=== PATIENT | female | born 1990 | race Caucasian/White ===

== ENCOUNTER 2021-12-25 09:16 | Outpatient (RCR) | payer MEDICAID, SELFPAY ==
--- NOTE | 2021-12-25 09:05 | BH.SGPN.GN ---
Behaviors/Verbalizations/Mental Status: []Pt alert and oriented, casually dressed and groomed. Eye contact fair to good (writing in notebook throughout session), motor activity appropriate, speech within normal limits. Affect, constricted. Mood, depressed and anxious. Thoughts linear, logical, no signs of hallucinations or delusions. Reviewed pt's daily symptom tracker, no SI indicated. Client Response/Progress/Benefit: []Pt first day in IOP tx, she was receptive of session and remained attentive throughout. Reports current emotion as ?scared? and described a lot of anxiety surrounding seeking intensive mental health treatment. Pt shared she quit her job to focus on her mental health which has also felt overwhelming and like a lot of pressure to ensure she takes the necessary steps to address her mental health needs. Expressed wanting to learn skills to better cope with daily life stressors. Appeared to benefit from group support and encouragement. Will continue with IOP tx to improve healthy coping knowledge, improve mental health symptom management, and prevent decompensation. Narrative Note: []
--- NOTE | 2021-12-25 09:40 | BH.COMM_ITS ---
Communication Note - Communication with Client Communication Note: Met with pt to completed initial paperwork. No changes since pre-admission screening. Completed [place] Suicide Screening. Low risk. Denies SI, plan, or intent in the past 4 weeks. Case discussed with Dr. Diaz with plan to admit to [facility] level of care with dx of F33.2
--- NOTE | 2021-12-25 10:10 | BH.SGPN.GN ---
Behaviors/Verbalizations/Mental Status: [] Eye contact is fair. Motor activity is appropriate. Appearance is casual. Speech is Appropriate. Mood is depressed. Affect is flat. Thoughts are linear and logical. No evidence of psychosis. Client Response/Progress/Benefit: [] Pt was an passive participant in group discussions. Appeared to listen attentively to peers. Attentive during psycho-education on 4 types of conflict styles (Competing, Collaborating, Avoiding, and Accommodating). Worked with group to define conflict and identify how conflict is helpful. With peers identified barriers to addressing or managing conflict which included: fear of upsetting others, embarrassing self, abandonment, past negative experiences with conflict, and shutting down. Pt reported she tries to be collaborative but at times will revert to accommodating style. Pt reported when accommodating she doesn't get her needs met. Benefited from group due to increase insight and awareness of conflict, conflict styles, and obstacles to managing conflict. Pt to continue IOP to increase consistent use of healthy coping skills, increase positive thinking, and prevent decompensation.
--- NOTE | 2021-12-25 11:10 | BH.SGPN.GN ---
Behaviors/Verbalizations/Mental Status: []Client alert and oriented, neatly dressed and groomed. Eye contact stares. Motor activity appropriate. Speech within normal limits. Affect flat, mood depressed and anxious. Thoughts linear, logical, no signs of hallucinations or delusions. Client Response/Progress/Benefit: []Client engaged in session AEB contributing to discussion and engaging in activity. Client did well to review current conflict style and its impact on mental health. Attentive and taking notes during discussion on strategies for more effectively managing conflict in personal life. Client participated in activity and did well to be assertive and collaborating. Client wants to work on asking herself what is making her upset before address any conflict to help client focus on what her needs and goals are. Appeared to benefit from gaining strategies to help client better manage conflict. First day of IOP tx. Will continue IOP tx to prevent decompensation, gain healthy coping skills, and improve overall functioning. Narrative Note: []
--- NOTE | 2021-12-28 11:14 | BH.PSA_ITS ---
Source of Information - Presenting Problems/Circumstances Problems, Referral Source, Mental Status, Client: Client is a 31 year old female with a history of Major Depressive Disorder and Generalized Anxiety Disorder. Client was referred by her individual outpatient therapist to [facility] due to increased depression symptoms over the past year. Client endorses hopelessness, worthlessness, anhedonia, lack of interest, oversleeping, trouble concentrating, rumination, self-isolation, and low motivation. Client reports that her mental health symptoms have impacted her ability to accomplish tasks at home and take care of her activities of daily living. Client was alert and oriented during assessment. Cooperative and receptive. Depressed mood and flat affect. Psychiatric Presentation - Psych Issues & Need for Admission Psychiatric Issues:: F33.2 Major Depressive Disorder, recurrent, severe without psychosis; Generalized Anxiety Disorder Past Psychiatric History - Treatment Hx Treatment History: Previous diagnosis of Major Depressive Disorder, recurrent, severe without psychosis and Generalized anxiety disorder. Client reports having counseling ?for years?, and currently sees an individual outpatient therapist and a new psychiatrist who recently prescribed Pristiq and Strattera. Client states that she has had 7-8 medication changes over the past year. She has a history of one psychiatric admission. Client endorses passive thoughts of , but denies previous suicide attempts or self-harm. First hospitalization:: March 2021 in [place] for suicidal ideation and depression Most recent hospitalization:: March 2021 in [place] for suicidal ideation and depression Medication Trials:: Yes - Strattera, Pristiq ECT Therapy:: No Age of first mental health symptoms: Client reports a long history of depression, with first symptoms of depression and anxiety starting when the client was in high school. Describe (age, circumstance, etc) any past hospitalizations: Client?s first and only hospitalization in March 2021 due to depression and suicidal ideation. Current providers for mental health treatment (counselor, psychiatrist, high risk case manager, etc.): Client currently sees an outpatient individual therapist at [facility] and psychiatrist at [facility] Development & Family of Origin - Childhood Significant Childhood Events: Client reports having a happy and loving childhood. Client's parents are , and client has a sister. Client reported onset of mental health symptoms in high school, describing high school as stressful due to high expectations she set for herself. Client denies any childhood abuse or neglect. - Family Who currently lives in your home?: Client currently lives with her boyfriend in [place] and her cat. Describe family composition:: Client was born and raised in [place] with her m other and father. Client?s parents are , and she reports a ?happy, loving? childhood. Client has a sister who also lives in [place]. Client reports having close relationships with her mother and sister, but is struggling to feel connected to them due to her depression symptoms. - Family History Family Hx of Psychiatric or AOD Problems: Paternal grandfather has a history of bipolar disorder, 2 maternal cousins with a history of depression. Client reports a history of alcohol addiction with her mother and father, and drug addiction with 2 maternal aunts. Ethnicity - Sexuality Sexual Orientation: Bisexual Spirituality - Moravian Do you currently identify with any organized christian?: None - Beliefs Is there a particular form of support from this community you can use for your recovery?: No Mental Status - Memory Recent Memory: Fair Remote Memory: Fair - Concentration Concentration: Poor - Speech Speech: Articulate, Congruent - Thought Process Thought Process: Logical Insight: Fair Judgment: Fair Behavior: Normal - Orientation Orientation: Time, Person, Place, Situation - Appearance Appearance: Appropriate - Mood Mood: Depressed - Affect Affect: Flattened Suicide Assessment - Suicidal Ideation Have you ever felt like hurting yourself?: Yes Please explain:: Client has a history of one prior psychiatric admission for suicidal ideation and depression, and endorses passive thoughts of . Client identifies her mother, sister, and boyfriend as protective factors. Were you using ETOH/drugs at the time?: No Suicidal Intentional Rating Scale (SIRS): Current suicidal thoughts/No plan/C ontracts for safety Physician Notification: If Active suicidal thoughts/Will not contract for safety is checked, contact physician and document in the Physician Notification section below. Violent Behavior/Abuse History - Homicidal Ideation Do you have any homicidal thoughts? If so, explain:: No Is there a known potential victim? If yes, who:: No - Abuse Have you ever been abused?: No - Safety Do you ever feel threatened in your home? If yes, describe:: No Adult Social History - Age 20 to Present Describe your current support system:: Client identified her primary supports as her boyfriend, mother, and sister. Substance Use - Substance Substance Use Type: None - IV Substance Use Do you have a history of IV use?: Denies Leisure/Social Activities - Interests What do you enjoy or might be interested in learning about?: Client has a Bachelors degree in Illustration and enjoys drawing and creating art when not experiencing depression. Client enjoys playing video games and participating in [employer] Solar[employer] and Dragons sessions with her friends virtually. 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 Client left this job due to worsening depression and to focus on attending [employer]. Service - Service Have you ever been in the ?: No Legal History - Records Have you had any past legal charges?: No Do you have any current legal charges?: No Have you ever been incarcerated? If yes, describe:: No - Court Orders Have you had any past court orders for psychiatric treatment?: No Do you have a present court order for psychiatric treatment?: No Problem Checklist - Current Problem Areas Problem List: Depressed mood/sad, Anxiety, Inattention, Sleep problems - Fatigue, Additional psychosocial stressors - Moved to [place] from [place] with limited support Discharge Planning Needs - Anticipated Follow-Up Mental Health Center (Name/Phone Number):: [facility] [phone] Private Therapist/Psychiatrist:: Nancy Gutierrez, Sho [phone] Primary Care Physician: [place] - [phone] Family and Caregiver Contacts:: Kai Lama, Boyfriend - [phone] Release of Information Signed:: Yes Dev Ops Engineer's Assessment - Client's Needs What are the client's feelings about the program?: Client reports benefitting from group sessions and hearing insight from others as well as group topics. What are the client's goals?: Client identified treatment goals of increasing depression management skills and improving her self-esteem. What are the client's strengths?: Client is intelligent, thoughtful, kind, and appears motivated to improve her mental health. Client is connected with an ongoing outpatient therapist and psychiatrist. Client received a Bachelor's degree in Illustration. Client reports willingness to work on her mental health and learning how to better manage her emotions and mental health symptoms. Diagnoses - Diagnoses Diagnosis #1:: F33.2 Major Depressive Disorder, recurrent, severe without psychosis Diagnosis #2:: Generalized Anxiety Disorder Diagnosis #3:: Primary support and work issues Interpretive Summary - Interpretive Summary Interpretive Summary: Client is a 31 year old female with a long history of depression and anxiety which she reports began in highschool. Client was referred to [facility] by her individual outpatient therapist due to increased depression impacting her ability to complete household tasks and perform activities of daily living. Client reports her symptoms increasing following having pneumonia almost a year ago, with her depression being episodic prior. Client currently endorses low motivation, lack of interest, oversleeping, worthlessness, hopelessness, anhedonia, trouble concentrating, and rumination. Client reports family history of Bipolar Disorder, Depression, Alcoholism, and drug abuse. Client reports cognitive distortions of catastrophizing and mental filtering. Client denies AoD issues or family history of abuse. Denies history of trauma, emotional, verbal, physical abuse. Client?s current symptoms are impacting her familial, occupational, and social functioning. Treatment Plan Recommendations - Recommendations Guidelines: Special needs identified to be included in the development of an individualized treatment plan regarding past psychiatric history and treatment, developmental events, family relationships/events/culture, past and/or current educational, occupational, social, and residential experience, and legal status. Recommendations:: The patient will start the IOP program in behavioral health at [facility] as the structure, support, education and group therapy will hopefully prevent worsening of the patient's symptoms which could require hospitalization. She felt safe during the interview and if it anytime she does not feel safe she will let us know or go to the emergency room. The risk, options, and possible complications of the medications were discussed with the patient by psychiatrist and she understands and accepts these. She will continue to follow-up with her outpatient psychiatric and medical providers.
--- NOTE | 2021-12-28 11:17 | BH.MTP ---
Master Treatment Plan - Patient Information Program Physician:: Dr. Nancy Diaz Primary Therapist:: OBDULIA Montoya; Jenna HERNANDEZ - Psychiatric Diagnoses Psychiatric Diagnoses:: F33.2 Major Depressive Disorder, recurrent, severe without psychosis. Generalized Anxiety Disorder Diagnosis Code(s):: F33.2 - Estimated LOS Estimated LOS (in weeks):: 6 Problem/Goal #1 - Problem/Goal #1 Stated Goal:: Client will decrease depressive symptoms, isolation, negative self-talk, and purposelessness to major depression disorder. Description of Barriers: Client has limited social support, with her primary supports including her mother, sister, and boyfriend. Client's mother and sister live in [place], with only her and her boyfriend in [place] due to his graduate school. Functional Impact: Client is a 29 year-old female with a history of Major Depressive Disorder. Client has a history of one prior psychiatric hospitalization for depression and suicidal ideation in [place] in March 2021. Client was referred to [facility] treatment by her outpatient counselor due to worsening depression and increased difficulty completing tasks of daily living. Decompensation over the past year including self-isolation, being unable to continue working, and decreased ability to complete tasks around her home and activities of daily living. Endorses wanting to sleep all the time, trouble concentrating, low energy, rumination, hopelessness, worthlessness, and anhedonia. Denies active suicidal ideations, plan, or intent. No hx of attempts. Client endorses passive thoughts of , I wouldn't care if I . Denies HI or psychosis. Denies substance abuse. Family hx of bipolar disorder(paternal grandfather) , depression(2 maternal cousins), and drug addiction(2 maternal aunts). Client's primary supports are her mother, sister, and boyfriend. Client recently started Pristiq and Strattera. Due to mental health impacting functioning and passive thoughts of recommended IOP level of care. Goal Relevant Strengths/Supports: Client is intelligent, thoughtful, kind, and appears motivated to improve her mental health. Client is connected with an ongoing outpatient therapist and psychiatrist. Client identifies her mother, sister, and boyfriend as her primary mental health supports. Client reports willingness to work on her mental health and learning how to better manage her emotions and mental health symptoms. - Objectives Objective #1 Stated Objective: Client will learn and utilize 2-3 healthy coping strategies to better manage depressive symptoms as shown by a reduced DSM-5 scores for depression. Interventions: Through group and individual sessions, therapist will help client identify triggers and warning signs of depression and emotional dysregulation including emotional, physical, and behavioral changes. Therapist will teach client various coping skills to manage her symptoms and give client tangible resources to use to regulate emotions. Therapist will use cognitive restructuring techniques and help client gain awareness of negative thoughts that reinforce guilt and depression. Therapist will provide psychoeducation on maintenance cycles and help client learn ways to break unhealthy maintenance cycles. Therapist will help client incorporate behavioral activation and assist client in setting SMART goals. Discharge Criteria: Client will have met this goal when she can report learning and using at least 2 coping skills to manage depressive symptoms. Additionally, client will have met this goal when her depressive symptoms have reduced on the DSM-5 scale. Target Date: 02/05/22 Review Date: 01/15/22 Status: Open Objective #2 Stated Objective: Client will identify at least 2-3 negative self-talk messages used to reinforce negative core beliefs and replace thoughts with positive, realistic messages. Interventions: Therapist will help client identify distorted, negative beliefs about self and replace with more realistic, affirmative messages. Therapist will use CBT to help client increase insight to the connection between thoughts, emotions, and behaviors. Therapist will also use dialectical thinking to help client combat all or nothing expectations and fear of failure. Therapist will encourage client to practice thought challenging. Discharge Criteria: Client will have achieved this goal when can verbalize at least 2 negative self-talk messages and effectively replace those thoughts with affirmative messages. Target Date: 02/05/22 Review Date: 01/15/22 Problem/Goal #2 - Problem/Goal #2 Stated Goal:: Client will decrease ruminating thoughts, avoidance, and racing thoughts caused by anxiety. Description of Barriers: Client has limited social support, with her primary supports including her mother, sister, and boyfriend. Client's mother and sister live in [place], with only her and her boyfriend in [place] due to his graduate school. Functional Impact: Client is a 29 year-old female with a history of Major Depressive Disorder. Client has a history of one prior psychiatric hospitalization for depression and suicidal ideation in [place] in March 2021. Client was referred to [facility] treatment by her outpatient counselor due to worsening depression and increased difficulty completing tasks of daily living. Decompensation over the past year including self-isolation, being unable to continue working, and decreased ability to complete tasks around her home and activities of daily living. Endorses wanting to sleep all the time, trouble concentrating, low energy, rumination, hopelessness, worthlessness, and anhedonia. Denies active suicidal ideations, plan, or intent. No hx of attempts. Client endorses passive thoughts of , I wouldn't care if I . Denies HI or psychosis. Denies substance abuse. Family hx of bipolar disorder(paternal grandfather) , depression(2 maternal cousins), and drug addiction(2 maternal aunts). Client's primary supports are her mother, sister, and boyfriend. Client recently started Pristiq and Strattera. Due to mental health impacting functioning and passive thoughts of recommended IOP level of care. Goal Relevant Strengths/Supports: Client is intelligent, thoughtful, kind, and appears motivated to improve her mental health. Client is connected with an ongoing outpatient therapist and psychiatrist. Client identifies her mother, sister, and boyfriend as her primary mental health supports. Client reports willingness to work on her mental health and learning how to better manage her emotions and mental health symptoms. - Objectives Objective #1 Stated Objective: Client will identify 2-3 cognitive distortions that lead to rumination and learn 2-3 ways to manage these thoughts to better manage anxiety Interventions: Therapist will provide education on the most common cognitive distortions and teach client the connection between thoughts, emotions, and feelings. Therapist will assist client in identifying, challenging, and replacing dysfunctional thoughts with positive, more realistic thoughts. Therapist will use CBT and DBT techniques to help client gain awareness of thinking errors and learn how to more effectively handle negative thoughts. Therapist will also use self-compassion to help client set more realistic expectations for herself. Discharge Criteria: Client will have accomplished this goal when can identify at least 2 cognitive distortions and at least 2 coping skills to manage negative thoughts. Target Date: 02/05/22 Review Date: 01/15/22 Status: Open Objective #2 Stated Objective: Client will identify 2-3 anxiety triggers and 2 coping skills to use when feeling anxious to manage anxiety as shown by decreasing her avoidance behaviors and DSM-5 scores for anxiety. Interventions: Therapist will provide education on anxiety, avoidance behaviors, and maintenance cycles. Therapist will help client explore personal symptoms and warning signs of anxiety. Therapist will teach client coping skills to improve emotional regulation, mindfulness, and distress tolerance to help client cope with anxiety in the moment. Discharge Criteria: Client will have accomplished this goal when she can identify at least 2 triggers and report using 2 coping skills to manage anxiety. Additionally, client will have accomplished this goal when her avoidance behaviors and DSM-5 scores show a reduction. Target Date: 02/05/22 Review Date: 01/15/22
--- NOTE | 2021-12-29 09:02 | BH.SGPN.GN ---
Behaviors/Verbalizations/Mental Status: []Eye contact is good. Motor activity is appropriate. Appearance is casual. Speech is Appropriate. Mood is depressed and anxious. Affect is constricted. Thoughts are linear and logical. No evidence of psychosis. Reviewed daily check in sheet and pt reports of suicidal ideations and intent as 1/5, which is consistent with pt reported baseline. Client Response/Progress/Benefit: []Pt was a semi-active participant in group discussion, reports this is her second day in tx and she is still adjusting to the group environment. Provided appropriate feedback when prompted. Emotion for today is ?anxious?. Shared she has been experiencing increased anxiety the past few days and is unsure as to why. Receptive of and appearing to benefit from group support and normalizing pt emotions. Group provided several anxiety management suggestions and pt reports connecting with some. Shared she has been able to continue to meet her daily goals and responsibilities which has been a positive, but fears struggling to continue to do so. Shared wanting to focus n better managing daily stressors impacting her mental health. Limited progress since last session. Will continue in IOP to prevent decompensation, continue to stabilize mood, and increase application of healthy coping skills. Narrative Note: []
--- NOTE | 2021-12-29 10:00 | BH.SGPN.GN ---
Behaviors/Verbalizations/Mental Status: []Pt alert and oriented, neatly dressed and groomed. Eye contact good. Motor activity appropriate. Speech within normal limits. Affect flat, mood depressed. Thoughts linear, logical, no signs of hallucinations or delusions. Client Response/Progress/Benefit: []Pt responded well to session, attentive and participating in activity. Pt contributing during the discussion of what fear of failure means and what contributes to the development of fear of failure. Group shared that the fear of failure can lead to isolation, self-sabotage, pushing people away, self-doubt, avoidance, and not trying. Pt made connections during the activity including fear of failure leading to being indecisive. Pt appeared to benefit from gaining awareness of the impact fear of failure can have on one?s mental health and wellbeing. Will continue IOP tx to prevent decompensation, gain healthy coping skills, and improve daily functioning. Narrative Note: []
--- NOTE | 2021-12-29 11:10 | BH.SGPN.GN ---
Behaviors/Verbalizations/Mental Status: []Pt alert and oriented, neatly dressed and groomed. Eye contact good. Motor activity appropriate. Speech within normal limits. Affect flat, mood depressed. Thoughts linear, logical, no signs of hallucinations or delusions. Client Response/Progress/Benefit: []Pt responded well to session, engaged in the experiential activity and attentive throughout group processing. 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 Pt completed fear of failure worksheet and was able to identify thoughts and behaviors that reinforce personal fear of failure including: self-doubt, anxiety, and social pressures. Pt participated in small group discussion regarding strategies to overcome fear of failure. Identified wanting to work on challenging her fear of failing by using positive affirmations. Appeared to benefit from increased knowledge of strategies to combat fear of failure and gaining self-awareness. Pt will continue IOP treatment to prevent decompensation, improve daily functioning, and combat distortions. Narrative Note: []
--- NOTE | 2021-12-30 10:25 | BH.NA ---
Physical Data - Vital Signs Pulse Rate: 96 Blood Pressure: 120/84 - Height/Weight Height: 1.5 m Weight:: 63.503 kg Weight in Pounds: 140.0 lbs Current Medication Compliance - Medication Compliance Do you take your medication as prescribed?: Yes Nutritional History - Appetite Nutritional Instructions:: If client shows signs of a swallowing problem, weight change of 10 pounds or more in the last month, or is on a diabetic diet, the physician will review and request a dietitian consult, as appropriate. All unintentional weight loss will be referred to the physician for decision on need for dietitian consult. Describe your appetite:: Good Additional nutritional information:: Client states she has gained about 10lbs in the last year but denies change in appetite/exercise. Functional Assessment - Sleep Pattern Describe any problems with sleeping: Client states she sleeps 11-12 hours per day if it's left up to me. - Activities Motor Activity:: Functional Sensory/Communication Assess - Vision Problems Do you have any vision problems?: Glasses - Communication Problems Do you have difficulty understanding what people are saying?: No Medical Problems/History - Pain Assessment Do you have acute or chronic pain?: No - Additional History Additional comments:: vulvodynia that resolved in 2018 Surgical History - Surgical History Have you had any surgeries? If so, list type and date:: Yes - eye surgery as an infant Substance Abuse - Substance Abuse Please describe substance abuse in the last 30 days:: Client reports very rare alcohol use. Client denies tobacco or substance use. Client denies regular caffeine use. Mental Status Summary - Mental Status Significant Findings/Observations on Appearance and Mood:: Client is alert and oriented x 4. Client is casually groomed with good hygiene. Client makes fair eye contact. Client's voice has regular volume and rate. Client makes logical associations and has normal processing. Client denies delusions/hallucinations. Client reports fleeting SI at times, but denies SI at this time. Suicide Assessment - Suicidal Ideation Are you currently or have you been suicidal in the past?: Yes - denies SI at this time, reports fleeting SI at times Suicidal Intentional Rating Scale (SIRS): Suicidal thoughts (past) Physician Notification: If Active suicidal thoughts/Will not contract for safety is checked, contact physician and document in the Physician Notification section below. Assault History/Potential Past Psychiatric History - MH Treatment Hx Past Psychiatric Medications:: David Remeron, Cymbalta, Zoloft, Effexor, Prozac, Amitriptyline, Wellbutrin, Ritalin, Abilify, Risperdal, Viibryd Age of first mental health symptoms: Client states she first had symptoms of depression in high school and was first medicated for depression her freshman year of college. Describe (age, circumstance, etc) any past hospitalizations: Client states she was in a crisis bed for 1 week in February 2021 in [place], and one hospitalization in March 2021 in [place] for depression. 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 Fall Risk Assessment - Age Age: Less than 60 - Mental Status Mental Status: Willing & able to ask for assistance when needed - Physical Status Physical Status: No problems - Impairments Impairments: None - Elimination Elimination: Continent AND independent - Gait or Balance Gait or Balance: Walks independently - Hx of Falls History of falls in the past 6 months: No known history - Medications/Substances Psychotropics:: Antidepressants Medications/substances used within the past 24 hours or ordered to administer: 1-2 of the medications/substances listed above - Total Score Total Points:: 1 RN Summary of Impressions - Impressions Recommendations: Include psychiatric and medical issues, treatment planning recommendations, and discharge planning needs. Impressions: Psychiatric Issues: 1. Major depressive disorder, recurrent, severe without psychosis. 2. Generalized anxiety disorder - Level of Care How do the client's current symptoms and functional deficits support need for this level of care?: Client was referred to IOP by her outpatient therapist for worsening depression. Client states she has been feeling very depressed for about a year with many medication changes and doing regular outpatient therapy and depression has been resistant to improve. Client reports feeling hopeless, crying spells, decreased concentration, anhedonia and isolation. Client reports the last serious SI that she had was in October, but states she does have fleeting SI at times but denies SI this day. IOP will promote gains and prevent further decompensation while providing social support and skills training.
[2021-12-30 11:12] VITALS: BP 120/84; PULSE 96
--- NOTE | 2021-12-30 11:13 | BH.SGPN.GN ---
Behaviors/Verbalizations/Mental Status: []Client alert and oriented, neatly dressed and groomed. Eye contact good. Motor activity appropriate. Speech within normal limits. Affect flat, mood depressed. Thoughts linear, logical, no signs of hallucinations or delusions. Client Response/Progress/Benefit: []Client responded well to session, taking notes and participating in worksheet discussion. Client identified they want to take action on reducing negative thinking by writing down one positive thing from each day before bed. Identified keeping a notebook by her bedside and asking her supports to remind her as strategies that can help client follow through with the goal. Appeared to benefit from identifying a small goal to benefit mental health. Client to continue IOP to prevent decompensation, gain healthy coping skills, and reduce negative thinking patterns. Narrative Note: []
--- NOTE | 2021-12-30 12:43 | BH.PSY.EVA_ITS ---
Psychiatric Evaluation Initial Evaluation Initial Evaluation: Chief Complaint: I feel like a depressed piece of garbage. The patient is a 31-year-old female who currently lives with her boyfriend of 2 years who is a optical laboratory manager at the [employer] in an apartment. Patient was referred to the IOP program by her outpatient counselor due to worsening depression for the past few months and a difficulty accomplishing things at home and doing her activities of daily living. 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 She quit her job due to mental health issues making her unable to work and the fact that she wanted to do the IOP program and really be able to concentrate on it. The patient has a degree from [employer] and [employer] but has been unable to find work in her field for years. Patient states that her depression worsened after she had pneumonia 1 year ago. This was not Covid. The patient describes her relationship with her boyfriend as good but she feels that she is nothing to give him right now. The patient's biggest stressor right now is the depression. The patient is lifting weights every other day as a form of exercise. She has limited primary support because she moved to [place] from [place] 1 year ago to be with her boyfriend at his college. She also lists her boyfriend, mother and sister as primary support. Patient endorses a sad mood for months now almost a year. She endorses hopelessness, worthlessness and guilt. She has no motivation and has been isolating herself. and is sometimes 11 hours a day or more. She wants to sleep all the time and has low energy and fatigue during the day. Her sleep is increased She has decreased concentration. She ruminates negatively during the day and describes herself as a worrier by nature. She denies panic attacks, OCD, eating disorder, trauma or PTSD. She denies any history of self-harm. She has She denies seizure or hea fleeting suicidald trauma. ideation which is passive and occurs maybe 2-3 times a week. She denies active suicidal ideation or plan for suicide. She does admit to having passive thoughts that she would not care if she . She denies homicidal ideation, hallucinations, delusions or symptoms of blaise ever. The patient admits that she was last suicidal in October 2021 that was anything but fleeting. [] Current Psy Pristiq 100 mg p.o. daily (x11 weeks); Strattera 25 mg p.o. daily (x7 weeks). The patient saw her new psychiatrist 1 time 1 week ago and her new psychiatrist discontinued her Vraylar that she had been on for 9 months. The patient does not feel the veil Vraylar helped her. Also Remeron was disc ontinued after she took it for over a year and it did not help her The patient states that she has had 7 or 8 medication changes in the past year. It was also discontinued 1 week ago. and feels that none of her medications have helped her. [place] in March 2021 for suicidal ideation and depression. She has a history of 1 psychiatric admission in She has no suicide attempts ever. The patient has been on many different medications in the past including Cymbalta which helped for 2 to 3 years. She is also taken Zoloft, Prozac, amitriptyline, Effexor XR,. Wellbutrin made her shaky. Remeron, Abilify, Risperdal which gave her bad Ritalin gave her more energy side effects, Viibryd, Vraylar but she does not remember if it helped. since her early 20s pretty much consistently. [facility] She had counseling for years and it helped a little.ool and has been on antidepressant medications She has an appointment with her new psychiatrist again in a couple weeks. [] Plan: [] Substance use history: Non-smoker. No vaping. No marijuana and no drug use ever. Past medical history: She born very premature at about 28 weeks gestation. She was in the hospital for 6 months before going home she thinks. She has lazy eye and had eyelid surgery in the past. She had a feeding tube as an infant as a . She is a 0 para 0 female with a history of regular menstrual periods. She is on oral contraceptive pills now. She has a history of vulvodynia since which was resolved when she took Cymbalta for it. She started the Cymbalta in 2018 and even though she is off it now the vulvodynia never returned. Allergies: No known allergies medications: Psych meds as dictated above plus oral contraceptive pills, vitamin D and fish oil. Family medical/psychiatric history: Paternal grandfather is bipolar. She has 2 maternal cousins with depression. Mother and father both alive and healthy in their 50s and 60s respectively. No completed suicides in the family. Her mother and father are alcoholics possibly and she has 2 maternal aunts with drug addiction. Development social history: She was born and raised in [place] and describes her childhood as good, happy. Parents are and are loving. She denies any verbal, physical or sexual abuse ever. She has 1 sister 4 years younger and she is close to her sister and her mother. School was stressful for her. The patient is very perfectionistic and always has been and is always wanted to do really well. She denies any pressure from her parents. She got very good grades and graduated high school second in her class. She was never in a special class or on an IEP. She attended college at [employer] in [place] which is an arts and design college. She graduated in 2016 with a degree in illustration. 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 She has had 1 serious boyfriend which is the current boyfriend of over 2 years. He is 24 years old and is a optical laboratory manager in [place] at the [employer] entomology No abuse in their relationship. Legal history: No arrests. 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 No DUIs. Mental status exam: The patient is a 31-year-old overweight female who wears glasses and is casually dressed and groomed with good hygiene. She is ambulatory with a normal gait. She has no psychomotor agitation or retardation. Eye contact is good and speech is normal rate and rhythm and fluent with no pressure. Mood is depressed. Affect is constricted. Thought process is goal- directed and organized. Thought content: There is evidence of passive thoughts of and occasional fleeting suicidal There is no evidence of active suicidal ideation, plan for suicide, homicidal ideation, hallucinations, delusions or symptoms of blaise ever.ideation. Reality testing is intact. Intelligence is above average. Judgment is intact. Insight: Some present fair. Impulsivity low to moderate. Diagnosis: 1. Major depressive disorder, recurrent, severe without psychosis 2. Generalized anxiety disorder 3. Primary support and work issues plan: The patient will start the IOP program in behavioral health at [facility] as the structure, support, education and vanita She felt safe during the interview and if it anytime she does not feel safe she will let us know or go to the emergency room.up therapy will hopefully prevent worsening of the patient's symptoms which could require hospitalization. The risks, options, possible complications and side effects of medications were discussed with the patient and she understands and accepts these. No medication changes were made today as the patient had her medications changed 1 week ago. I will see the patient in 2 weeks and at that time we will decide if we need to add something such as a stimulant are auxiliary thyroid medication. The patient is also a ca intranasal ketamine therapyndidate for ECT therapy and or but she is not interested in that at this point. She will continue to follow-up with her outpatient psychiatrist and medical providers.
--- NOTE | 2021-12-30 12:58 | BH.DR.ITP ---
Initial Treatment Plan Patient Information Visit Information: ADMISSION DATE: EXPECTED LOS: 4-6 weeks Problems/Symptoms Problem #1:: Depression Symptom:: Sadness, anhedonia, worthlessness, hopelessness, biological disruption of sleep, low energy, decreased concentration, guilt, passive thoughts of , recent fleeting, passive suicidal ideation Problem #2:: Anxiety Symptom:: Worry, rumination
--- NOTE | 2021-12-31 09:00 | BH.SGPN.GN ---
Behaviors/Verbalizations/Mental Status: [] Eye contact is good. Motor activity is appropriate. Appearance is casual. Speech is Appropriate. Mood is depressed. Affect is flat. Thoughts are linear and logical. No evidence of psychosis. Reviewed daily check in sheet and no reports of suicidal ideations or intent. Client Response/Progress/Benefit: [] Pt participated at times during the group discussion on mindfulness and meditation. Attentive. Daily symptom tracker notes 12/29 for depression. Emotion for today is trepidatious. Mental health win is that she had a couple days of showering and exercising. Improved ADLs . States its getting easier however she immediately believes that she will regress I'm scared this will not continue and it will get worse. Tearful. Group provided feedback of fear of failure as well as celebrating the wins in mental health health which was beneficial. Benefited from group support, encouragement, and feedback. Will continue in IOP to prevent decompensation, increase health coping, and improve functioning. Narrative Note: []
--- NOTE | 2021-12-31 10:11 | BH.SGPN.GN ---
Behaviors/Verbalizations/Mental Status: []Client alert and oriented, casual dress, hygiene tended to. Eye contact good. Motor activity WNL. Speech quiet with limited input. Affect congruent, mood anxious and depressed. Thoughts linear, logical, no signs of hallucinations or delusions. Client Response/Progress/Benefit: [] Pt engaged in session as evidenced by pt listening to others and taking notes, though provided limited input throughout. Pt stated Problem-solving skills can improve confidence in addressing future problems. Pt reported her negative thoughts and unrealistic expectations can be a barrier to addressing her problems directly. Pt recognized her negative self-talk often makes her situation worse and holds her back. Pt worked cooperatively with peers during problem solving activity, able to work through problem by using A,B,C,D,E problem solving method. Pt seemed to benefit from learning about problem solving method and rehearsing problem solving skills in the moment. Pt to continue IOP level of care to continue to decrease anxiety, increase utilization of healthy coping and communication skills, and prevent decompensation. Narrative Note: []
--- NOTE | 2021-12-31 13:12 | BH.MDN ---
Multi-Disciplinary Note - Note 45-min Individual Time Started:: 12:15 Date: 12/31/21 Purpose of session/treatment goals addressed:: To identify treatment goals and build rapport with client. Eye Contact:: Good Motor Activity:: Appropriate Appearance:: Casual Speech:: Appropriate Mood:: Depressed Affect:: Congruent Thoughts:: Linear, Logical Staff Interventions:: CBT techniques, rapport building, strengths perspective, treatment planning, goal setting Client Response:: Client was open to meeting with clinician and engaged throughout session, presenting as depressed. Client discussed her presenting problem and goals for treatment. Client reports experiencing depression consistently for the past year leading to her seeking mental health treatment. Client discussed self-isolating and questioning her relationships with her family and boyfriend due to not feeling ?like people should?. She also discussed struggling to complete her hygiene self-care and cleaning her apartment. Client discussed her goals, which include increasing depression management skills and improving her self-esteem. Clinician then aided the client in filling out a treatment goal worksheet identifying her concrete goals and setting objectives to reach the goals. Client identified low motivation as a barrier to reaching her goals. Clinician then provided client with a decisional balance worksheet to examine the pros and cons of participating in IOP treatment to aide client in behavioral activation, and challenged her to journal her accomplishments twice before next session. Risks/Concerns:: Client denies any suicidal ideations, plan, or intent as of 12/31/21. Client denies any homicidal ideations. Progress Toward Goals/Plan:: Client is new to IOP treatment, therefore limited progress identified. Client reports feeling depressed, and endorses broken sleep pattern, trouble concentrating, anhedonia, lack of motivation, and no longer wanting to do the things that she likes. Client reports benefitting from content presented in group. Receptive and willing to identify treatment goals to begin addressing problem areas. Client will continue IOP treatment to prevent decompensation, gain healthy coping skills, and reduce avoidant behaviors that reinforce depression. Time Stopped:: 13:00
--- NOTE | 2022-01-01 09:00 | BH.SGPN.GN ---
Behaviors/Verbalizations/Mental Status: [] Eye contact is good. Motor activity is appropriate. Appearance is casual. Speech is Appropriate. Mood is depressed. Affect is flat. Thoughts are linear and logical. No evidence of psychosis. Reviewed daily check in sheet and no reports of suicidal ideations or intent. Client Response/Progress/Benefit: [] Pt participated at times during group discussion. Attentive. Daily symptom tracker notes 12/29 for depression. Mental health win was that she worked out and showered yesterday which the 3rd day in a row. States that it was more challenging to complete yesterday however insight that her progress does not have to be linear. She has developed a way to catalog her mental health journey and she discussed why this will be beneficial. She also developed a personal affirmation yesterday which she found very helpful. Shared that it was difficult to come up with something positive because she has such a negative self-image. I got tearful. She plans on trying to develop an affirmation every day. Progress noted per pt report. Benefited from group support, discussion, and feedback. Will continue in IOP to prevent decompensation, increase healthy coping, and to improve functioning. Narrative Note: []
--- NOTE | 2022-01-01 10:15 | BH.SGPN.GN ---
Behaviors/Verbalizations/Mental Status: []Eye contact is good. Motor activity is appropriate. Appearance is casual and grooming tended to. Speech is Appropriate. Mood is anxious and depressed. Affect is congruent. Thoughts are linear and logical. No evidence of psychosis Client Response/Progress/Benefit: []Pt receptive of session, engaged throughout AEB taking notes and actively listening throughout discussion. Appeared to connect with group topic of cognitive distortions and the impact of thought patterns on mental health, coping behaviors, and relationships. Reflected that her own distorted thoughts have made it more difficult to give herself credit for her own accomplishments. Attentive during group discussion on the influence of media, environment, past experiences and current mood on vulnerability to distorted thought patterns. Appeared to benefit from gaining insight on distorted thinking patterns and influence of distortions on maintaining unhealthy maintenance cycles. Progress remains variable as pt negative thought patterns and core beliefs continue to impact mood stability. Recommended continued IOP treatment to improve mood stability, continue to promote health thought challenging, and prevent decompensation. Narrative Note: []
--- NOTE | 2022-01-01 10:20 | BH.SGPN.GN ---
Behaviors/Verbalizations/Mental Status: []Client alert and oriented, casually dressed and groomed. Eye contact good. Motor activity appropriate. Speech within normal limits. Affect congruent, mood depressed. Thoughts linear, logical, no signs of hallucinations or delusions. Client Response/Progress/Benefit: []Client responded well to session AEB listening attentively to others. Client appeared connected to group discussion defining cognitive distortions and their costs. Clinician provided psychoeducation on ten types of cognitive distortions, their costs, and what to do to manage them. Client took notes and appeared engaged throughout psychoeducation. Client identified cognitive distortions she experiences most often, including overgeneralization, shoulding, and mental filtering. Appeared to benefit from increased knowledge of cognitive distortions and self-awareness. Will continue IOP treatment to increase positive self-talk and depression management skills to improve daily functioning. Narrative Note: []
--- NOTE | 2022-01-05 09:05 | BH.SGPN.GN ---
Behaviors/Verbalizations/Mental Status: []Pt alert and oriented, casually dressed and groomed. Eye contact fair. Motor activity appropriate. Speech within normal limits. Affect flat, mood depressed. Thoughts linear, logical, no signs of hallucinations or delusions. Reviewed pt?s symptom tracker, no risk for suicidal ideation, plan, or intent as of 01/05/22. Client Response/Progress/Benefit: P[]Pt responded well to session, receptive to supportive statements from peers and land surveyor. Pt reports feeling frustrated this morning as pt continues to struggle with feeling no motivation, anhedonia, and depressed. Pt shared she had a productive weekend but yesterday pt spent most of the day crying and things too way longer than they should have. Group and land surveyor encouraged self-compassion and helped pt challenge distorted thought patterns. Discussed the importance of setting realistic goals with self and acknowledging all wins, even small ones. Pt appeared to benefit from this as pt thanked peers. Will continue IOP tx to prevent decompensation, improve daily functioning, and combat distorted thoughts. Narrative Note: []
--- NOTE | 2022-01-05 10:11 | BH.SGPN.GN ---
Behaviors/Verbalizations/Mental Status: []Client alert and oriented, casually dressed and groomed. Eye contact good. Motor activity appropriate. Speech within normal limits. Affect congruent, mood depressed and anxious. Thoughts linear, logical, no signs of hallucinations or delusions. Client Response/Progress/Benefit: []Pt engaged throughout AEB taking notes, listening attentively, and providing input throughout. Attentive during psychoeducation and discussed the importance of goal-setting with the group. Pt indicated that goals ?help give us continue to grow?. Group identified potential benefits of having goals to include: they motivate, increase self-confidence, provide a sense of accomplishment, help you begin to create healthier habits, and can improve relationships with self and others. Group also worked together to identify barriers to goal-setting which included; fear of failure, limited resources, distortions, negative self-talk, doubt, and lack of support from others. Pt identified personal barriers to include negative self-talk and unrealistic expectations of self. Benefited from increased awareness of benefits and barriers to goal-setting. Pt will continue in IOP to prevent decompensation, increase self-worth and further stabilize mood, as well as further improve daily functioning. Narrative Note: []
--- NOTE | 2022-01-05 11:12 | BH.SGPN.GN ---
Behaviors/Verbalizations/Mental Status: []Client alert and oriented, casually dressed and groomed. Eye contact good. Motor activity appropriate. Speech within normal limits. Affect congruent, mood anxious and depressed. Thoughts linear, logical, no signs of hallucinations or delusions. Client Response/Progress/Benefit: []Pt was an active participant in group discussions and activities. Quiet and passive, but engaged in activity. Pt identified a SMART goal for the next week is to: do one affirmation video each day over the next week. Pt reported this would benefit her by helping improve self-love and increase self-esteem. Identified not believing affirmations and low motivation levels as potential barriers to completing this goal. Pt able to identify several solutions, such as, opposite action, setting reminder alarms, and asking supports or looking up affirmation ideas online, that can help overcome identified barriers. Benefited from group by being able to utilize SMART educate to create a goal. Pt to continue IOP to continue to promote self-care and healthy coping, increase self-love, and prevent decompensation. Narrative Note: []
--- NOTE | 2022-01-07 09:00 | BH.SGPN.GN ---
Behaviors/Verbalizations/Mental Status: [] Eye contact is good. Motor activity is appropriate. Appearance is casual. Speech is Appropriate. Mood is euthymic. Affect is full. Thoughts are linear and logical. No evidence of psychosis. Reviewed daily check in sheet and no reports of suicidal ideations or intent. Client Response/Progress/Benefit: [] Pt participated at times during the group discussion. Attentive. Mental health wins include completing tasks and maintain my daily affirmation video. Shared that she was tearful yesterday and I don't know why. Shared that she listened to a song and starting crying and then cried on and off for several hours. Denies that the song was triggering. Focused on the why. Group provided feedback and empathized with her crying spells which was beneficial. Progress continues to be made per pt, however notes long standing poor self-esteem and mistaken beliefs. Will continue in IOP to prevent decompensation, increase healthy coping skills, and improve functioning to return to work. Narrative Note: []
--- NOTE | 2022-01-07 10:05 | BH.SGPN.GN ---
Behaviors/Verbalizations/Mental Status: []Client alert and oriented, casually dressed and groomed. Eye contact good. Motor activity appropriate. Speech within normal limits. Affect congruent, mood depressed. Thoughts linear, logical, no signs of hallucinations or delusions. Client Response/Progress/Benefit: []Client responded well to session AEB sharing and listening attentively to others. Client participated in group discussion defining boundaries and why having healthy boundaries is important. Client provided an example of the importance of healthy boundaries as it improves relationships with others. Client appeared connected to psychoeducation on types of boundaries, including physical, emotional, and intellectual. Client listened attentively to group members share personal examples of different types of boundaries. Client appeared to benefit from increased knowledge of the types of boundaries and increased self-awareness of personal boundaries. Will continue IOP treatment to increase depression management skills and increase self-compassion to improve daily functioning. Narrative Note: []
--- NOTE | 2022-01-07 11:18 | BH.SGPN.GN ---
Behaviors/Verbalizations/Mental Status: []Client alert and oriented, casually dressed and groomed. Eye contact good. Motor activity appropriate. Speech within normal limits. Affect congruent, mood anxious, depressed. Thoughts linear, logical, no signs of hallucinations or delusions. Client Response/Progress/Benefit: []Pt responded well to session AEB listening attentively to peers and providing some input throughout. Pt attentive during continued psychoeducation on the different boundary types as well as the various boundary setting styles. Pt noted connecting most with the flexible and rigid boundary setting styles. Pt shared she struggles at times to accept other?s points of view or beliefs when they differ from hers. Pt stated this has led to limiting her willingness to accept others or give them a chance. Pt was given a handout on strategies for healthy boundary setting. Pt identified wanting to work on improving intellectual boundaries by challenging herself to be more receptive and willing to listen to other?s ideas and points of view. Appeared to benefit from increasing insight to boundary setting and the impacts on mental health. Progress noted in pt?s consistent attendance and improved engagement in tx. Will continue IOP tx to prevent decompensation, improve self-talk and depression management skills, and prevent decompensation. Narrative Note: []
--- NOTE | 2022-01-07 14:36 | BH.MDN ---
Multi-Disciplinary Note - Note 60-min Individual Time Started:: 12:15 Date: 01/07/22 Purpose of session/treatment goals addressed:: To provide psychoeducation on depression as an illness and introduce the cognitive model of thought challenging. Eye Contact:: Good Motor Activity:: Appropriate Appearance:: Casual Speech:: Appropriate Mood:: Depressed Affect:: Flat Thoughts:: Linear, Logical Staff Interventions:: psychoeducation on: - Major Depressive Disorder, CBT techniques, rapport building, strengths perspective, goal setting Client Response:: Client was open to meeting with clinician and engaged throughout session, presenting as depressed. Client discussed their current stressors, which include a recent uncontrollable crying episode, which lasted for an hour. Client state that she tried to take a step back to see what was causing the crying, but could not explain it. Client reports having an appointment scheduled to see her psychiatrist in the coming days to discuss this. Client reported journaling consistently, and making affirmation videos daily. Client reports showering and exercising every other day as physical self-care. Client completed the decisional balance worksheet homework, and came up with pros and cons for both making change and staying the same, which she stated was a helpful motivator. Clinician provided psychoeducation on depression, describing it as an illness with symptoms, the same as pneumonia. The client resonated with this, as she stated ?I wouldn?t be hard on myself for having a stuffy nose with pneumonia?. The clinician then discussed the cognitive triangle, and aided the client in identifying the thought, emotion, and behavior in a situation she identified. Clinician then worked with the client to reframe the thought to change the problematic behavior. Clinician assigned a thought log as homework, and challenged the client to continue journaling and using affirmations. Risks/Concerns:: Client denies any suicidal ideations, plan, or intent as of 01/07/22. Client denies any homicidal ideations. Progress Toward Goals/Plan:: Client reports oversleeping, lack of motivation, trouble concentrating, anhedonia, and no longer wanting to do the things that she likes. Client reports benefitting from content presented in group sessions. Client is receptive to making change and is taking action to improve her mental health. Reports progress in continuing to keep up with physical self care needs, journaling, and daily affirmations. Will continue IOP treatment to gain healthy coping skills, and reduce avoidant behaviors that reinforce depression. Time Stopped:: 13:15
--- NOTE | 2022-01-08 09:00 | BH.SGPN.GN ---
Behaviors/Verbalizations/Mental Status: [] Eye contact is poor. Motor activity is appropriate. Appearance is casual. Speech is Appropriate. Mood is depressed. Affect is flat. Thoughts are linear and logical. No evidence of psychosis. Reviewed daily check in sheet and no reports of suicidal ideations or intent. Client Response/Progress/Benefit: [] Pt participated at times during the group discussion. Attentive. Daily symptom tracker notes 4/5 for depression and 3/5 for anxiety. Emotion for today is anxious and irritable. Shared that she was irritable all day yesterday for no reason. My emotional state will just randomly change. Overwhelming feeling like something is wrong. Continues to implement her daily maintain plans and skills. Continues with daily affirmation videos and did reward herself for these. Group provided feedback and empathized with her struggles. Some members provided their insight on unexpected mood changes. Pt benefited from support and feedback. Regression noted per pt report. Continues to struggle with mental health impacting [id number]. Will continue in IOP to prevent decompensation, increase healthy coping, and improve functioning. Narrative Note: []
--- NOTE | 2022-01-08 10:15 | BH.SGPN.GN ---
Behaviors/Verbalizations/Mental Status: []Eye contact is good. Motor activity is appropriate. Appearance is casual. Speech is Appropriate. Mood is depressed. Affect is constricted. Thoughts are linear and logical. No evidence of psychosis. Client Response/Progress/Benefit: []Pt was an active participant in group discussion AEB taking notes and providing input throughout. Attentive during psychoeducation reviewing internal and external obstacles and provided examples throughout. Participated in the reflection activity in which clients janis pictures depicting their current and desired reality and shared with the group. Pt shared in current reality she shared feels like head is barely over water with a sea monster trying to pull her underwater. Pt stated the sea monster represents depression. Shared desired reality is to have the water up to her knees, feeling less depression and improved functioning. Seemed to benefit from increased awareness of current functioning and identifying future goal for her mental health and functioning. Pt to continue IOP to decrease depressive symptoms, increase consistent use of healthy coping and prevent decompensation.
--- NOTE | 2022-01-12 09:00 | BH.SGPN.GN ---
Behaviors/Verbalizations/Mental Status: [] Eye contact is good. Motor activity is appropriate. Appearance is casual. Speech is Appropriate. Mood is depressed. Affect is flat. Thoughts are linear and logical. No evidence of psychosis. Reviewed daily check in sheet and no reports of suicidal ideations or intent. Client Response/Progress/Benefit: [] Pt participated when prompted. Attentive. Daily symptom tracker notes 5 for depression and /5 for anxiety. Emotion for today is worn down. Mental health wins are that she is continuing with daily exercise and ADLs. She also got back to drawing yesterday and shared that it was beneficial. Overall she reports regression stating that I'm struggling to feel good about myself. She will suddenly just get overwhelming depression and crying spells feeling as if she has little control over her moods. Low motivation to complete any tasks and limited pleasure in activities. She is utilizing opposite action however the is a chore. Feels that she has to put in so much work to complete tasks which should be easy and enjoyable. Group provided feedback and examples of how/when they started to back changes from anhedonia to baseline which was beneficial. Other empathized with her. Plan is to continue with IOP to prevent decompensation, increase healthy coping, and improve functioning. Narrative Note: []
--- NOTE | 2022-01-12 10:16 | BH.SGPN.GN ---
Behaviors/Verbalizations/Mental Status: []Pt alert and oriented, casually dressed and groomed. Eye contact fair-looking down at times. Motor activity appropriate. Speech within normal limits. Affect flat, mood depressed. Thoughts linear, logical, no signs of hallucinations or delusions. Client Response/Progress/Benefit: []Pt receptive to session, listening attentively and taking notes as the group brainstormed the positive and negative aspects of stress on physical and mental health. Identified racing thoughts and GI issues. Group worked together to define stress and provided input during discussion about eustress vs distress. 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 Pt reports belief that their stress jar is close to overflowing and when their stress jar overflows, pt cries, sleeps, shuts down, and becomes hopeless. Seemed to benefit from increased awareness of current stressors and impact of too much stress on the mind and body. Will continue IOP tx to prevent decompensation, reduce negative thinking patterns, and improve overall functioning. Narrative Note: []
--- NOTE | 2022-01-12 11:15 | BH.SGPN.GN ---
Behaviors/Verbalizations/Mental Status: []Client alert and oriented, casually dressed and groomed. Eye contact good. Motor activity appropriate. Speech within normal limits. Affect constricted, mood anxious and depressed. Thoughts linear, logical, no signs of hallucinations or delusions. Client Response/Progress/Benefit: []Client engaged in session AEB listening attentively, taking notes, and providing input when prompted throughout. Client participated in discussion about the 4 A's of managing stress and expressed connecting with the various benefits of each. Identified she would like to work on using the skill of better adapting her mindset about current stressors to improve hopefulness and willingness to work on coping with them. Client seemed to benefit from increased awareness of the impact of stress on mental health and increasing repertoire of stress management strategies. Progress remains variable as client continues to struggle with significant negative self-talk and unrealistically high expectations of self. Will continue IOP tx to continue to improve mood stability and coping repertoire, improve self-esteem, as well as prevent decompensation. Narrative Note: []
--- NOTE | 2022-01-13 08:56 | BH.MTP_ITS ---
Treatment Plan Review Date of Admission:: 12/25/21 Date of Treatment Plan Review:: 01/15/22 Admitting Diagnoses:: F33.2 Major Depressive Disorder, recurrent, severe without psychosis. Generalized Anxiety Disorder Current Diagnoses:: F33.2 Major Depressive Disorder, recurrent, severe without psychosis. Generalized Anxiety Disorder Patient's Response to Treatment:: Client is responding well to treatment AEB consistent attendance. Client contributes well to individual sessions, exhibits good insight, and completes assigned homework. Client engaged in group session, appearing connected to group topics and taking notes throughout. Client reports using affirmations, and is working on identifying negative automatic thoughts and challenging them. Per DSM-5 scores, client's symptoms have decreased by 12%. Status of Current Problems and Symptoms: Client's problems are ongoing, but are improving incrementally. Client reports an increase in ADL completion, use of accomplishment journal, and affirmations to improve mood. This is an improvement as client reported difficulty with motivation and completing ADLs at admission. Client continues to report difficulty concentrating, oversleeping, rumination, self-isolation, and negative self talk. Problem #1 Problem Name:: depressive symptoms, isolation, negative self-talk, and purposelessness Status of Goals:: Objective 1: in progress. Client can identify negative coping and is able to use opposite action to work against depression symptoms. Objective 2: Ongoing - client is able to identify when she is being self- critical, is working toward reframing messages. Team Recommendations:: Team recommends working on self-compassion to aid client in reducing negative self talk. Problem #2 Problem Name:: ruminating thoughts, avoidance, and racing thoughts caused by anxiety Status of Goals:: Objective 1: In progress - Client is able to identify cognitive distortions in thought patterns, is working toward being able to reframe negative thoughts. Objective 2: In progress - Client can identify that her anxiety is triggered mostly by unrealistic expectations set for herself - is working on small goal setting and using calming skills. Team Recommendations:: Team recommends aiding continuing to work on reframing negative self talk and aiding client in exploring low-stress hobbies.
--- NOTE | 2022-01-13 09:00 | BH.SGPN.GN ---
Behaviors/Verbalizations/Mental Status: []Pt alert and oriented, casually dressed and groomed. Eye contact fair. Motor activity appropriate. Speech within normal limits. Affect flat, mood depressed. Thoughts linear, logical, no signs of hallucinations or delusions. Reviewed pt?s symptom tracker, no risk for suicidal ideation, plan, or intent as of 01/13/22. Client Response/Progress/Benefit: P[]Pt responded well to session, receptive to feedback from peers and therapist. Pt reports feeling exhausted this morning as pt continues to struggle with managing her depression. Pt shared she is beginning to dread the days when she has to workout and shower. Pt stated it is frustrating that she is not able to easily do things that she used to be able to do. Pt receptive to group support and feedback on challenging expectations and practicing self-compassion. Pt able to identify mental health wins which included doing laundry over the weekend and starting a sewing project. Pt appeared to benefit from connecting with peers and challenging negative thoughts in the moment. Pt will continue IOP tx to reduce negative thinking patterns, reduce anhedonia, and improve overall functioning. Narrative Note: []
--- NOTE | 2022-01-13 10:05 | BH.SGPN.GN ---
Behaviors/Verbalizations/Mental Status: []Client alert and oriented, casually dressed and groomed. Eye contact good. Motor activity appropriate. Speech within normal limits. Affect congruent, mood euthymic. Thoughts linear, logical, no signs of hallucinations or delusions. Client Response/Progress/Benefit: []Client responded well to session AEB sharing and listening attentively to others. Client was engaged throughout group discussion identifying common characteristics of ineffective communication and the benefits of effective communication. Client participated in group activity identifying communication styles, including passive, aggressive, passive aggressive, and assertive. Client provided definitions of each, including stating if individuals are using the aggressive communication style there may not be much communication occurring. Client appeared to benefit from increased knowledge of communication styles and the benefits of healthy communication. Will continue IOP treatment to decrease rumination and increase depression management skills to improve daily functioning. Narrative Note: []
--- NOTE | 2022-01-13 11:10 | BH.SGPN.GN ---
Behaviors/Verbalizations/Mental Status: []Client alert and oriented, casually dressed and appropriately groomed. Eye contact marjorie. Motor activity appropriate. Speech WNL. Affect constricted, mood depressed. Thoughts linear, logical, no signs of hallucinations or delusions. Client Response/Progress/Benefit: []Client responded well to session AEB client listening attentively to others and providing input during group discussion on the pay offs and costs of the different communication styles. Client reported she tries to use assertive communication most often with others, however at times will revert to passive-aggressiveness. Client can note the benefits when she uses assertive vs passive aggressive communication. Attentive during psychoeducation on interpersonal DBT skill PAVAN. Client seemed to benefit from increasing awareness of healthy strategies to improve communication. Client will continue IOP to improve healthy coping, challenge distorted thoughts and prevent decompensation.
--- NOTE | 2022-01-13 11:36 | PCM.BH.PN_ITS ---
Progress Note Progress Note: History of Present Illness/Interim History: [] The patient is a 31-year-old female with a history of depression and anxiety who is seen in follow-up at the [facility] behavioral health IOP program. I last saw the patient 2 weeks ago. The patient states that she feels legs she is making a little progress in the IOP program. She feels she is learning valuable skills and she is coping better with her anxiety and mood swings. She feels that overall she is having more happiness and michelle in the past few weeks than she was having prior to starting the IOP program. The patient is attentive and participates when present but the patient has had somewhat inconsistent attendance according to staff. The patient said her mood overall has improved and she is feeling less depressed most of the time but at times she still feels very down. She has low motivation still and limited pleasure in life overall. She states that it so hard to do anything that I do not know how much I want to go on if it does not improve. She denies any passive thoughts of now. She states that she still has occasional passive suicidal thoughts but they occur much less often now than they used to. She denies any active suicidal ideation, plan for suicide, homicidal ideation, hallucinations or delusions. Her energy remains still somewhat low during the day. She states that she is seeing her current psychiatric provider in 5 days and they have a plan to add Lamictal at that time. Current Psychiatric Medications: [] Pristiq 100 mg p.o. daily (x13 weeks); Strattera 25 mg p.o. daily (x9 weeks) vitamin D Mental Status Examination: [] The patient is a 31-year-old overweight female who is seen wearing glasses and is casually dressed and groomed with good hygiene. She is ambulatory with a normal gait. She has no psychomotor agitation or retardation. Speech is normal rate and rhythm and fluent with no pressure. Eye contact is good. Mood is mildly depressed. Affect is full and normal today. Thought process is goal-directed and organized. Thought content: There is no evidence of passive thoughts of . There is evidence of occasional fleeting suicidal ideation. There is no evidence of active suicidal ideation, plan for suicide, homicidal ideation, hallucinations or delusions. Reality testing is intact. Intelligence is above average. Judgment is intact. Insight: Fair. Impulsivity: Low to moderate. Diagnoses: [] 1. Major depressive disorder, recurrent, severe without psychosis 2. Generalized anxiety disorder 3. Primary support and work issues Plan: [] The patient will continue the IOP program at [facility] as the structure, support, education and group therapy will hopefully prevent worsening of the patient's symptoms which could require hospitalization. She felt safe during the interview and if it anytime she does not feel safe she will let us know or go to the emergency room. The risks, options, possible complications and side effects of medications were again discussed with the patient and she understands and accepts these. The patient seems to want her current outpatient doctor to manage her medications and she sees them in 5 days and states that they are planning to start Lamictal at that time. No medication changes were made today. She will continue to follow-up with her outpatient psychiatric and medical providers.
--- NOTE | 2022-01-14 09:00 | BH.SGPN.GN ---
Behaviors/Verbalizations/Mental Status: [] Eye contact is good. Motor activity is appropriate. Appearance is casual. Speech is Appropriate. Mood is depressed. Affect is flat. Thoughts are linear and logical. No evidence of psychosis. Reviewed daily check in sheet and no reports of suicidal ideations or intent. Client Response/Progress/Benefit: [] Pt participated when prompted. Attentive. Mental health wins include she continues to shower daily and exercise. Stressor is that she has an appointment with her outpatient psychiatrist next week with plan to start a new medication. She shared the anxiety, frustration, and fear associated with starting a new medications. She has had several medication trails in the past year which limited success and feels hopeless. Group empathized with emotions around changes and new medications and provided positive encouragement which was beneficial. Some pt shared that they had similar thoughts however they eventually found the right medication. Limited progress noted as she appears to have plateaued in IOP. Will continue in IOP to prevent decompensation, improve functioning, and increase healthy coping skills. Narrative Note: []
--- NOTE | 2022-01-14 10:05 | BH.SGPN.GN ---
Behaviors/Verbalizations/Mental Status: []Client alert and oriented, casually dressed and groomed. Eye contact good. Motor activity appropriate. Speech within normal limits. Affect flat, mood depressed. Thoughts linear, logical, no signs of hallucinations or delusions. Client Response/Progress/Benefit: []Client responded well to session AEB sharing and listening attentively to others. Client participated in group discussion defining fixed mindset and what it can look like, with client providing an example of ?This is how it has always been?. Group discussed how fixed mindset affects mental health and why we use fixed thoughts. Client participated in experiential activity encouraging clients to find solutions to a seemingly impossible task. Client aided group members, providing problem solving and support. Client identified a fixed thought keeping her stuck as ?I?m an unproductive piece of garbage?. Client appeared to benefit from increased knowledge of fixed mindset and self-awareness of personal fixed thoughts. Will continue IOP treatment to increase depression management skills and decrease negative self-talk to improve daily functioning. Narrative Note: []
--- NOTE | 2022-01-14 11:10 | BH.SGPN.GN ---
Behaviors/Verbalizations/Mental Status: []Pt alert and oriented, neatly dressed and groomed. Eye contact good. Motor activity appropriate. Speech within normal limits. Affect constricted, mood dysthymic. Thoughts linear, logical, no signs of hallucinations or delusions. Client Response/Progress/Benefit: []Pt engaged during activity and discussion AEB providing some input, connecting with peers, as well as taking notes throughout. Pt did well to engage as group worked on identifying characteristics and benefits of adopting a growth mindset. Worked with fellow participants in reframing the example fixed thoughts into growth mindset thoughts, providing support throughout. Reframed personal fixed thought of ?I?m unattractive and I?m not worthy of love? with growth mindset thought of ?attractiveness is subjective, and I am worthy of love and I am loved by many people.? Benefitted from discussing benefits of growth mindset and brainstorming strategies for prompting growth-mindset. Will continue IOP tx to reduce negative thinking patterns, improve self-compassion, and reduce depressive symptoms. Narrative Note: []
--- NOTE | 2022-01-14 14:37 | BH.MDN_ITS ---
Multi-Disciplinary Note - Note 60-min Individual Time Started:: 12:05 Date: 01/14/22 Purpose of session/treatment goals addressed:: To provide psychoeducation on self-compassion and address current stressors Eye Contact:: Good Motor Activity:: Appropriate Appearance:: Casual Speech:: Appropriate Mood:: Depressed Affect:: Flat Thoughts:: Linear, Logical Staff Interventions:: psychoeducation on: - Self Compassion, CBT techniques, rapport building, strengths perspective, goal setting Client Response:: Client was open to meeting with clinician and engaged throughout session, presenting as depressed. Client discussed their current stressors, which include recent ?mood swings? 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 Client reported journaling consistently, and making affirmation videos daily. Client reports showering and exercising every other day as physical self-care. Client completed the thought log assigned as homework, including identifying cognitive distortions associated with her thoughts and reframing them. Client reported that this exercise was helpful, and found that reminding herself that depression is an illness empowering. Clinician provided psychoeducation on self-compassion, discussing the definition of self compassion, three chin components, and what self compassion is not. Client connected with this, identifying a recent situation where she could have benefitted from self compassion. Client used self- compassion in a statement regarding being hard on herself for recognizing small accomplishments such as keeping up with physical self care as she ?should? be able to do them. She stated, ?I am not healthy right now, so these things are accomplishments?. Clinician then provided client with grounding exercises to practice for next session, and encouraged her to continue journaling and using affirmations daily. Risks/Concerns:: Client denies any suicidal ideations, plan, or intent as of 01/14/22. Client denies any homicidal ideations. Progress Toward Goals/Plan:: Client reports ?mood swings?, anhedonia, lack of motivation, oversleeping, and no longer wanting to do the things that she likes. Client reports benefitting from content presented in group sessions. Client is receptive to making change and is taking action to improve her mental health. Reports progress in continuing to keep up with physical self care needs, journaling, and daily affirmations, however client continues to report daily symptoms. Will continue IOP treatment to gain healthy coping skills, and reduce isolative behaviors that reinforce depression. Time Stopped:: 01:05
--- NOTE | 2022-01-19 09:05 | BH.SGPN.GN ---
Behaviors/Verbalizations/Mental Status: [] Eye contact is poor. Motor activity is appropriate. Appearance is casual. Speech is Appropriate. Mood is depressed/irritable. Affect is flat. Thoughts are linear and logical. No evidence of psychosis. Reviewed daily check in sheet and pt reports 1/5 for suicidal thoughts and 0/5 for intent. Client Response/Progress/Benefit: [] Pt participated when prompted. Attentive. Group watched short video on CBT and discussed.Daily symptom tracker notes 5 for depression. Mental health win was that she started her [employer] project. Worsening depression yesterday stating that she laid in bed crying for most of the day. Did not attempt to use any skills. Only intervention that was helpful was that her BF came home and made me food which led to her leaving the bed, showering, and then exercising. No trigger to decompensation. Things are not getting easier ... It shouldn''t be a fight . Feels tired and low. No progress noted per pt report. Group attempted to provided feedback and suggestions, however she was dismissive at times. Therapist asked pt to use yesterday as an opportunity to identify different skills or strategies she could have implemented which she responded there was nothing else I could have done. She has appointment with her outpatient psychiatrist this afternoon which she which is also leading to ruminating and catastrophizing. Limited benefit from group aside from support and encouragement. Will continue in IOP to maintain safety and prevent decompensation. Narrative Note: []
--- NOTE | 2022-01-19 10:15 | BH.SGPN.GN ---
Behaviors/Verbalizations/Mental Status: []Pt alert and oriented, casually dressed and groomed. Eye contact good. Motor activity appropriate. Speech within normal limits. Affect flat, mood depressed. Thoughts linear, logical, no signs of hallucinations or delusions. Client Response/Progress/Benefit: []Pt responded well to session AEB pt attentive throughout group discussion. Group discussed the origin of coping skills, examples of unhealthy coping, and why we use unhealthy coping skills. Pt reported she has used shutting down and sleep to cope with stressors in her life. Pt participated in experiential activity, and was attentive throughout group processing, taking notes and nodding throughout discussion of the importance of external supports and internal coping skills. Appeared to benefit from increased knowledge of internal coping skills and external supports. Pt will continue IOP tx to prevent decompensation, reduce cognitive distortions, and increase the use of healthy coping skills. Narrative Note: []
--- NOTE | 2022-01-19 11:17 | BH.SGPN.GN ---
Behaviors/Verbalizations/Mental Status: []Client alert and oriented, casually dressed and groomed. Eye contact fair to good. Motor activity appropriate. Speech within normal limits. Affect congruent, mood anxious and depressed. Thoughts linear, logical, no signs of hallucinations or delusions. Client Response/Progress/Benefit: []Client responded well to session AEB taking notes and providing some input throughout, continues to struggle with ruminating thoughts impacting engagement, however. Group discussed the different categories of coping skills which included distraction, emotional release, grounding, self-love, and thought challenging. Created a coping skill menu identifying various skills to try in each category. Client?s coping skill menu included: replacing the irrational with more rational thoughts, sing loudly to music, and sewing. Appeared to benefit from increasing repertoire of healthy coping skills. Will continue tx to further promote mood stability, improve consistent skill application and reduce negative thinking, and prevent decompensation. Narrative Note: []
--- NOTE | 2022-01-20 10:10 | BH.SGPN.GN ---
Addendum entered and electronically signed by Jenna Moreno 01/28/22 13:40: Reviewed and agree with findings. Original Note: Behaviors/Verbalizations/Mental Status: []Client alert and oriented, casually dressed and groomed. Eye contact good. Motor activity appropriate. Speech within normal limits. Affect flat, mood depressed. Thoughts linear, logical, no signs of hallucinations or delusions. Client Response/Progress/Benefit: []Client responded well to session AEB sharing and listening attentively to others. Client participated in photo activity illustrating how perspective affects the way we view others and ourselves. Client participated in group discussion of what shapes our perspective, contributing past experiences as an example. Client appeared connected to psychoeducation on how anxiety and depression become ?lenses? that we see the world through. Client participated in group discussion of how these lenses affect mental health treatment, stating that a negative perspective could cause someone to ?check out?and feel like it is not going to work. Client appeared to benefit from increased knowledge of how anxiety and depression affects perspective. Will continue IOP treatment to increase depression management skills and decrease negative self-talk to improve daily functioning. Narrative Note: []
--- NOTE | 2022-01-20 11:10 | BH.SGPN.GN ---
Behaviors/Verbalizations/Mental Status: []Pt alert and oriented, casually dressed and groomed. Eye contact good. Motor activity appropriate. Speech within normal limits. Affect flat, mood depressed and irritable. Thoughts linear, logical, no signs of hallucinations or delusions. Client Response/Progress/Benefit: []Pt was attentive and took notes, shared feeling frustrated with how having depression is unfair and she is not yet in the acceptance stage. Pt completed strengths exploration worksheet and identified personal strengths to include: love, creativity, and artistic ability. Pt shared that working to recognize these personal strengths more consistently will help improve pt?s mood, help pt feel more productive, and express difficult emotions. Shared wanting to focus on fostering personal strengths by scheduling time to be creative and make ?vent? art today. Benefited from identifying personal strengths and strategies for enhancing use of identified strengths. Pt to continue IOP tx to prevent decompensation, combat distortions that reinforce hopelessness and depression, and increase use of self-care skills. Narrative Note: []
--- NOTE | 2022-01-20 13:19 | BH.MDN ---
Multi-Disciplinary Note - Note 60-min Individual Time Started:: 09:05 Date: 01/20/22 Purpose of session/treatment goals addressed:: To provide psychoeducation on core beliefs and address current stressors Eye Contact:: Good Motor Activity:: Appropriate Appearance:: Casual Speech:: Appropriate Mood:: Depressed Affect:: Flat Thoughts:: Linear, Logical Staff Interventions:: thought challenging, psychoeducation on: - Core Beliefs, CBT techniques, strengths perspective, goal setting Client Response:: Client was open to meeting with clinician and engaged throughout session, presenting as depressed. Client discussed their current stressors, which include starting a new medication with her outpatient psychiatrist which may have serious side effects. Client reports working with her psychiatrist to minimize the possibility of side effects by slowly increasing the dose over the course of several weeks. Client reported continuing to journal daily, and reviewing the affirmation videos several times this week. Client also stated she has continued to shower and exercise every other day as physical self-care, though this has become increasingly difficult. Client reports feeling very tired and is struggling with thoughts of ?Everything is hard and terrible?leading to her to be ?immobilized? for most of the day on Tuesday. Client reported trying to distract herself from the thoughts, but was unsuccessful. Clinician and client worked together to reframe this thought using the cognitive triangle, but client was not open to changing this thought, AEB continuing to endorse hopelessness following. Client reported having passive thoughts of , but reported protective factors of her family and friends. Clinician provided psychoeducation on core beliefs and discussed how core beliefs influence the way that we think and feel. Clinician aided client in identifying a negative core belief and coming up with one piece of evidence as to why it is not necessarily true. Client was open to this. Clinician provided client with information on core beliefs and worksheets as homework. Risks/Concerns:: Client endorses passive thoughts of but denies any suicidal ideations, plan, or intent as of 01/20/22. Client denies any homicidal ideations. Progress Toward Goals/Plan:: :Client reports anhedonia, lack of motivation, fatigue, and no longer wanting to do the things that she likes. Client reports benefitting from content presented in group sessions. Client is receptive to making change and is taking action to improve her mental health. Reports progress in continuing to keep up with physical self care needs, and journaling however client continues to report daily symptoms. Will continue IOP treatment to gain healthy coping skills, and reduce isolative behaviors that reinforce depression. Time Stopped:: 10:05
--- NOTE | 2022-01-21 09:00 | BH.SGPN.GN ---
Behaviors/Verbalizations/Mental Status: []Pt alert and oriented, casually dressed and groomed. Eye contact good. Motor activity appropriate. Speech within normal limits. Affect flat, mood depressed. Thoughts linear, logical, no signs of hallucinations or delusions. Reviewed pt?s symptom tracker, no risk for suicidal ideation, plan, or intent as of 01/21/22. 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 Pt reports feeling discouraged this morning as pt continues to find no relief from her depressive symptoms. Pt shared she was able to shower and work out yesterday, but it continues to be a chore. Pt reports she used to be able to do these things easily, so pt is negative with herself for now struggling to complete these tasks. The group offered emotional support and brainstormed ways to help pt with her goals. Ideas offered included: having a support person exercise with her, listen to music, trying different workouts, and reevaluating her expectations for completing these tasks. Pt appeared to benefit from this and reported she could benefit from trying some vent art today. Pt continues to report no improvement in mood and hopelessness. Pt's medication was recently changed and hopefully this helps pt. Will continue IOP tx to prevent decompensation, reduce isolative behaviors, and combat distortions that reinforce depression and hopelessness. Narrative Note: []
--- NOTE | 2022-01-21 10:05 | BH.SGPN.GN ---
Behaviors/Verbalizations/Mental Status: [] Eye contact is good. Motor activity is appropriate. Appearance is casual. Speech is Appropriate. Mood is depressed. Affect is flat. Thoughts are linear and logical. No evidence of psychosis. Client Response/Progress/Benefit: [] Pt participated at times in group discussions. Attentive during psychoeducation on self-care. Engaged in group experiential activity. Group was presented with 8 myths about self-care which included; you're lazy or weak, its too expensive, not enough time to complete self-care. its not a priority, it's selfish. Pt was attentive as peers worked together to come up with ways to bust these myths to encourage the use of self-care to improve mental health and decrease stress/distress. Pt stated that she often believes that self-care is a weakness why should I need it if others around me don't Pt participated in group activity and was able to relate the activity to the topic of self-care as well as its importance in helping us manage stress, emotions, and everyday obstacles. Benefited from increased awareness of benefits of self-care and overcame stigma of taking time to self. Will continue in IOP to maintain safety, increase healthy coping skills, and improve functioning. Narrative Note: []
--- NOTE | 2022-01-21 11:15 | BH.SGPN.GN ---
Behaviors/Verbalizations/Mental Status: []Client alert and oriented, casually dressed and groomed. Eye contact good. Motor activity appropriate. Speech within normal limits. Affect congruent, mood depressed and anxious. Thoughts linear, logical, no signs of hallucinations or delusions. Client Response/Progress/Benefit: []Client engaged participant AEB client taking notes and contributing input during discussion. Participated throughout group discussion on the various areas of self-care, benefits, and types of self-care activities for each area. Client completed worksheet which identified current self-care practices and what self-care activities client wants to start using. Client selected professional and financial self-care as the area of self-care client would like to improve. Client plans to do this trying to find work in an area that feels more meaningful for her and will also provide a steady income. Client reports she is doing well with physical self-care. Appeared to benefit from completing the self-care evaluation and gaining insights into current self-care practices, as well as identifying areas in which she would like to improve upon. Will continue IOP tx to improve thought challenge and continuing to promote behavior activation skills encouraging client to practice self-care activities. Narrative Note: []
== END 2022-01-23 23:59 ==
LOC: BHIOP 09:16
PROVIDERS: Referring Provider Psychiatry & Neurology Psychiatry; Visit Provider Psychiatry & Neurology Psychiatry
DX: F33.2 Major depressive disorder, recurrent severe without psychotic features (principal); F41.1 Generalized anxiety disorder; Z79.899 Other long term (current) drug therapy
CPT/HCPCS: 90792; 99213; H2012; H2020; S9480; T1002; 90834; 90837

== ENCOUNTER 2022-01-25 08:00 | Outpatient (RCR) | payer MEDICAID, SELFPAY ==
[2022-01-24 00:44] VITALS: BP 120/84; PULSE 96
--- NOTE | 2022-01-26 09:00 | BH.SGPN.GN ---
Behaviors/Verbalizations/Mental Status: []Pt alert and oriented, casually dressed and groomed. Eye contact good, motor activity appropriate, speech within normal limits. Affect, constricted. Mood, depressed and anxious. Thoughts linear, logical, no signs of hallucinations or delusions. Reviewed pt's daily symptom tracker, SI reported as a 1/5 with no plan or intent noted, this is is consistent with pt reported daily baseline. Willing to meet with individual therapist following group on this date. Client Response/Progress/Benefit: []Pt receptive of session, attentive throughout. Pt reports emotion of the day as ?hopeless, noting that she is continuing to struggle with feeling as though everything she does is ?work? and that she has to force herself to complete even basic tasks. Reports this has been making self-care difficult and that she has been dreading completing parts of her regular routine such as exercising and showering. Receptive of and appeared to benefit from supportive feedback and suggestions provided by the group. Pt expectations of self and negative thinking patterns continue to impede progress. Pt reported completing a sewing project over the weekend which she identifies as a positive, however, followed this statement with a disqualifying one indicating she wishes she were doing more. Receptive of working to challenge these thoughts as well. Will continue tx to reinforce healthy coping skills, reduce distortions, as well as continue to promote behavior activation skill application. Narrative Note: []
--- NOTE | 2022-01-26 11:10 | BH.SGPN.GN ---
Behaviors/Verbalizations/Mental Status: []Pt alert and oriented, neatly dressed and groomed. Eye contact good. Motor activity appropriate. Speech within normal limits. Affect flat, mood depressed. Thoughts linear, logical, no signs of hallucinations or delusions. Client Response/Progress/Benefit: [] Pt engaged in session AEB pt listening attentively to peers and providing input. Attentive during psychoeducation on 4 zones of regulation. Pt able to identify feelings and behaviors for each zone. Pt identified coping skills one can use to support self in each zone. Pt reported she is in the ?blue? zone today as she feels depressed and has ?a negative attitude.? Pt reports she needs to contact a support person and exercise today to help herself. Benefited from increased education on zones of regulation or stages of alertness for emotions and healthy coping skills to use for each zone. Will continue IOP tx to prevent further decompensation, improve overall functioning, and reduce negative thinking patterns. Narrative Note: []
--- NOTE | 2022-01-26 11:43 | BH.MDN_ITS ---
Multi-Disciplinary Note - Note 45-min Individual Time Started:: 10:20 Date: 01/26/22 Purpose of session/treatment goals addressed:: Pt has presented with limited progress in the past 2 weeks and noted feeling hopeless in group this AM. Seen in group with head down. Met with pt individually to process current frustrations and discuss obstacles and plan for the future. Eye Contact:: Fair Motor Activity:: Appropriate Appearance:: Casual Speech:: Appropriate Mood:: Depressed Affect:: Flat Thoughts:: Linear, Logical, No evidence of hallucinations/delusions noted Staff Interventions:: psychoeducation on: - core mistaken beliefs Client Response:: Pt's current IOP therapist is leaving the program with her last day being 01/28/22. Pt is aware of this and we discussed the plan moving forward. Met with pt to assess current risk, review mistaken beliefs (which was introduced last session), and discuss plan for individual counseling as she moves forward in the program. She appears ambivalent regarding the changes simply stating ok. She read about core/mistaken beliefs and was able to identify 3 which included; I'm not worthy of others' love; 2. Others are more deserving than me; 3. I'm not a capable and functioning adult (I will never be able to contribute to society). Ruminating extensively on her inability to find employment in her field of study. She applied to several positions and has not received a call back. Believes she will never be able to hold down a job. Therapist did challenge rigid beliefs that she must get a job in her field to be financial stable and happy. Also challenged that she was not capable of being a functioning adult as she has only had 1 FT job which she maintained for a year. Her life goals are to be financial stable, help others, and have time to do what she loves (art, writing, etc.) which are obtainable even in career outside her field. Responded well to education on mistaken beliefs. Was given a questionnaire to complete. More engaged and talkative towards Risks/Concerns:: Pt reported a 1/5 for suicidal thoughts and 0/5 for intent. She reports passive thoughts of which are long-standing. What's the point and survival ambivalence. Denies active SI, plan, or intent. Does not present as imminent danger to herself nor does she indicate any need to involuntary pursue a crisis assessment, call to 911, or involuntary psych placement. Future- oriented (plans this afternoon, weekend plans). Progress Toward Goals/Plan:: Limited progress in the past 2 weeks. No specific triggers to decompensation, however she ruminates extensively on her inability to obtain a job in her field. Fearful that she will never be able to sustain herself financially and contribute to society. She reports applying to several jobs in her field and nobody ever calls back. Hopeless and believes she was lied to growing up as she was pressured to go to college and now she is in debt and feels she will never find a job (that she enjoys) in a field which she obtained her degree. Insight and awareness of cognitive distortions however has not been able to identify a strategy to consistently challenge or reframe. Limited progress from interventions learned in [facility] and focus will be shifted to addressing mistaken beliefs and guidance/encouragement on finding a fulfilling job rather than a job in her field (at this moment). Plan is to continue in [facility] to maintain safety, increase healthy coping skills, and improve functioning. Time Stopped:: 11:05
--- NOTE | 2022-01-27 09:00 | BH.SGPN.GN ---
Behaviors/Verbalizations/Mental Status: []Pt alert and oriented, casually dressed and groomed. Eye contact good. Motor activity appropriate. Speech within normal limits. Affect flat, mood depressed. Thoughts linear, logical, no signs of hallucinations or delusions. Reviewed pt?s symptom tracker, no risk for suicidal ideation, plan, or intent as of 01/27/22. Client Response/Progress/Benefit: []Pt responded well to session, contributing and receptive to feedback. Pt report feeling tired this morning as pt did some healthy self-care yesterday, but she got to bed late. Pt shared she played a game with her friends and she pushed herself to exercise. Pt shared she did not shower after exercising and she likes to do those things together, so it feels like a failure. General Utility Maintenance Repairer and group members helped pt identify and challenge this distortion. General Utility Maintenance Repairer also encouraged pt to focus more on her social self-care as this might help pt enough to improve motivation for physical self-care. Pt receptive to this as pt continues to report how difficult it is to force herself to exercise and shower which only reinforces depression and hopelessness. Pt appeared to benefit from group feedback. Will continue IOP tx to prevent decompensation, replace unhelpful thinking patterns, and reduce isolation. Narrative Note: []
--- NOTE | 2022-01-27 10:05 | BH.SGPN.GN ---
Behaviors/Verbalizations/Mental Status: [] Eye contact is good. Motor activity is appropriate. Appearance is casual. Speech is Appropriate. Mood is depressed. Affect is flat. Thoughts are linear and logical. No evidence of psychosis. Client Response/Progress/Benefit: [] Pt participated at times during group discussion. Attentive during psychoeducation on different anxiety disorders. Participated at times during an interactive discussion on defining anxiety, identifying physiological symptoms of anxiety, and identifying safety behaviors (behaviors used to ease anxiety or discomfort which are often unhealthy). Physiological symptoms reported by patient were chest pains, increased HR, increased breathing, and feeling warm. Along with peers identified common safety behaviors including; sleeping to cope, cancelling plans, not answering the phone, and utilizing substances to numb the pain. Benefited from increased awareness and insight on anxiety and its impact. Plan is to continue in IOP to maintain safety, increase health coping skills, and prevent decompensation. Narrative Note: []
--- NOTE | 2022-01-27 12:42 | BH.COMM ---
Communication Note - Communication with Client Communication Note: This therapist met with client to discuss this therapist leaving IOP to start a new job. Client will continue weekly therapy sessions with Yfn Musa.
--- NOTE | 2022-01-28 09:10 | BH.SGPN.GN ---
Behaviors/Verbalizations/Mental Status: [] Eye contact is good. Motor activity is appropriate. Appearance is casual. Speech is Appropriate. Mood is depressed. Affect is flat. Thoughts are linear and logical. No evidence of psychosis. Reviewed daily check in sheet and pt reports 1/5 for suicidal thoughts and 0/5 for intent. This is baseline. Client Response/Progress/Benefit: [] Pt participated at times during the group discussion. Attentive. Daily symptom tracker notes 4/5 for depression, which has been pt's baseline. Emotion for today is tired. [employer] was completing the dishes yesterday and picking up her medications. Pt was depressed all evening, isolated, and was ruminating on several events. Shared with the group that she was tearful last evening mainly related to a recent national news story. According to pt her BF misinterpreted her crying as being related to something that he did. This led to an argument, however according to pt it was later resolved. Pt states I just can't stop thinking about the argument. When questioned further she is ruminating on what she said and what she didn't say. Upset that she did not communicate effectively during the initial parts of the argument and is beating herself up for not saying certain things which could have better clarified her thinking. Why can't i stop thinking about it. Group normalized her ruminations and her struggles with communicating effectively when emotional which was beneficial. Pt has been struggling with limited progress in the past few weeks. Will continue in IOP to prevent decompensation and improve functioing. Narrative Note: []
--- NOTE | 2022-01-28 10:10 | BH.SGPN.GN ---
Behaviors/Verbalizations/Mental Status: [] Eye contact is good. Motor activity is appropriate. Appearance is casual. Speech is Appropriate. Mood is euthymic. Affect is congruent. Thoughts are linear and logical. No evidence of psychosis. Client Response/Progress/Benefit: [] Pt was an active participant in group discussion and activity. Attentive during psychoeducation on social stigma vs self-stigma. Pt was actively involved in interactive discussion on the question of What impacts how we define and view ourselves? Pt along with peers were able to identify several aspects that impact how we view ourselves which include; past experiences/exposure, our thoughts/current mental health state, our emotions, upbringing, and what other people tell us. Pt also participated in identifying examples of social stigma for mental health illness which included; mental health isn't as serious as physical health, you're choosing this, MH isn't real, it's an excuse, and you can just turn it off. Pt reported social stigma impacts ability for people to access treatment because of the hoops people have to go through with insurance companies to get help. Pt stated this makes her feel like a burden for having to get counseling. Benefited from increased awareness of how mental health stigma can impact individuals and treatment. Plan is to continue in IOP to challenge distorted thoughts, increase consistent use of healthy coping, and prevent decompensation.
--- NOTE | 2022-01-28 11:15 | BH.SGPN.GN ---
Behaviors/Verbalizations/Mental Status: Client alert and oriented, casually dressed and groomed. Eye contact good. Motor activity appropriate. Speech within normal limits. Affect congruent, mood dysthymic. Thoughts linear, logical, no signs of hallucinations or delusions. Client Response/Progress/Benefit: [] Client engaged participant AEB client participating in the activity, providing input during small group discussion, and listening attentively to others. Client appeared to connect with discussion challenging stigma by working on normalizing mental health and mental health tx. Group brainstormed strategies to combat social and perceived stigma in their own lives. Client shared one thing she can personally do to combat stigma is to be more kind and self-compassionate about with herself regarding her own mental health. Appeared to benefit from increasing awareness of strategies to combat stigma. Recommended continued IOP tx to improve daily functioning, increase healthy coping, and prevent decompensation. Narrative Note: []
--- NOTE | 2022-02-02 10:10 | BH.SGPN.GN ---
Behaviors/Verbalizations/Mental Status: []Client alert and oriented, casually dressed and groomed. Eye contact far, head down on desk at times. Motor activity appropriate. Speech within normal limits. Affect constricted, mood depressed and agitated. Thoughts linear, logical, no signs of hallucinations or delusions. Client Response/Progress/Benefit: []Client responded mostly well to session AEB taking notes, contributing to discussion, and listening attentively to others. Continues to struggle at times with maintaining engagement as client is often distracted by own negative thoughts, which often impedes consistent ability to maintain concentration on topic being discussed. Client was engaged throughout group discussion defining resilience and where resilience originates. Agreed with group that resilience can be both something you?re born with and something developed over time. Shared that reflecting on what helped in past times of difficulty can help to develop resilience and better cope with stressors. Engaged throughout discussion on the mental health benefits of resiliency, noting that resilience can improve confidence in one?s own abilities. Clinician provided psychoeducation on the road to resilience and introduced how making connections with others can help build resilience. Client appeared to benefit from increased knowledge of resilience and mental health benefits of developing a resilient mindset. Client continues to struggle with application of mental health coping and thought challenging skills outside tx environment which continues to impede progress. Client will continue IOP treatment to increase mood stability, continue to improve coping skill and thought challenging application, as well as prevent decompensation. Narrative Note: []
--- NOTE | 2022-02-02 15:21 | BH.MDN_ITS ---
Multi-Disciplinary Note - Note 60-min Individual Time Started:: 09:05 Date: 02/02/22 Purpose of session/treatment goals addressed:: Reviewed progress and current symptoms. Reviewed core mistaken beliefs and challenged patient's current thoughts and perspectives. Eye Contact:: Fair Motor Activity:: Appropriate Appearance:: Casual Speech:: Appropriate Mood:: Irritable, Depressed Affect:: Flat Thoughts:: Linear, Logical, No evidence of hallucinations/delusions noted Staff Interventions:: thought challenging, psychoeducation on: - mistaken core beliefs., goal setting Client Response:: Pt presented today reporting depression and limited progress. Everything is an obstacle ... Nothing is working. Reports that she spent the weekend with her family for the holiday and overall reports that it was beneficial. Medication compliant. Currently taking Lamictal 50mg with plan to increase to 100mg next week. She cannot identify any benefits to the medication. Goal of the session today was to review Mistaken Beliefs Questionnaire which identified two of concerns; You likely believe that you are powerless, have little or no control over outside circumstances, or are unable to do much to help your situation ; You likely believe that your self-worth is dependent on external achievements, such as school or career. She identified with both these beliefs. She talked at length how the first 25 years of her life her self-esteem was based on school accomplishments and completing assignments. Her praise from parents and support mainly came from these accomplishments. Since obtaining her degree she has not been able to find a job and since her depression she has not been able to complete art projects. Insight that her self-esteem is based on external achievements. Discussed the negative impact of this and ways to incorporate self-worth on internal achievements. She feels that she has no control over changing her current mood and gave several examples of external events that worsen her mood (tax issues, job rejection, etc). Attempted to counter mistaken beliefs with limited success as they appear to be very ingrained. Able to identify that she does have power over several things throughout the day. She reports challenges with exercising and showering throughout the week stating that she will cry for several minutes before. She dreads exercising and it makes her sad to think about it. Resistant and def ensive when encouraged to change up her routine as her current routine appears to maintain and worsen her depression. Risks/Concerns:: She continues to report passive thoughts of what's the point I'll never get better, however adamantly denies active suicidal ideations, plan, or intent. Future-oriented. Protective factors are her family and BF. Progress Toward Goals/Plan:: Pt has had limited progress over the past 2 weeks. Reports that she attempts to utilize skills however gets no benefit. Feels powerless and helpless over outside circumstances which leads to no effort and negative self-talk. Ingrained mistaken beliefs. Utilized motivational interviewing skills and gently challenged today. Encouraged to change up current routine as it is maintain depression, however she was resistant. Spoke with patient's outpatient therapist Nancy Gutierrez who reports pt is intelligent and often times motivated in session, however struggles to incorporate skills on consistent basis. Will continue in IOP to maintain safety, stabilize mood, and increase healthy coping. Will increase individual sessions this week with hopes that more individualized treatment will promote positive change. Time Stopped:: 10:10
--- NOTE | 2022-02-03 09:00 | BH.SGPN.GN ---
Behaviors/Verbalizations/Mental Status: []Eye contact is poor. Motor activity is appropriate. Appearance is casual. Speech is Appropriate. Mood is depressed. Affect is flat. Thoughts are linear and logical. No evidence of psychosis. Reviewed daily check in sheet and reports a 2/5, with 5 being severe, for suicidal ideations and a 0/5 for suicidal intention. This is decreased from client's report yesterday. Client does not appear to be imminent risk to harm self or others. Client Response/Progress/Benefit: []Client respond well to session as evidenced by sharing thoughts and feelings and listening attentively to others. Client identified mental positive as getting outside and going for a walk yesterday. Stated additional positive as using opposite action to make herself shower despite not wanting to. Client expressed frustration that everything is really hard right now and I am running out of effort and fight. Client stated she does not feel like she is seeing any progress and that she will not get better. Client receptive to therapist challenging her negative thinking and pointing out distorted thought patterns. Client agreed her mood was improved last week but has declined since experiencing a stressor over the weekend. Therapist provided several ideas on what client could do to help mood today. Client stated no idea on what I can do to help myself. Client identified feeling discouraged. Client progress could be hindered by continued use of disorder thought patterns and difficulty applying skills consistently outside IOP. Client to continue IOP to increase consistent use of healthy coping skills, increase positive thinking, and prevent decompensation. Narrative Note: []
--- NOTE | 2022-02-03 10:08 | BH.SGPN.GN ---
Behaviors/Verbalizations/Mental Status: []Client alert and oriented, casually dressed and groomed. Eye contact fair to good. Motor activity appropriate. Speech within normal limits, quiet with limited input provided. Affect constricted, mood depressed. Thoughts linear, logical, no signs of hallucinations or delusions. Client Response/Progress/Benefit: [] Client responded well to session AEB listening attentively to others, taking notes, and providing some input when prompted throughout. Client appeared to connect throughout group discussion defining pitfalls, as well as psychoeducation on internal and external triggers to pitfalls. Client worked with group to identify impact of pitfalls on mental health progress. Identified that avoidance can become a pitfall as it makes it more difficult to be motivated and often makes you feel worse and more guilty about not engaging in the activity you were avoiding later on. Client participated in experiential activity illustrating how easy it is to fall into pitfalls when we are unaware of them. Client aided group in problem solving and provided supportive suggestions throughout activity. Appeared to benefit from increased knowledge of pitfalls and their triggers. Will continue IOP treatment to continue increasing consistent application of healthy coping skills, prevent decompensation, and continue to work on challenging and replacing negative core beliefs reinforcing depression.
--- NOTE | 2022-02-03 11:35 | PCM.BH.PN ---
Progress Note Progress Note: History of Present Illness/Interim History: [] The patient is a 31-year-old female who is seen in follow-up at the [facility] behavioral health IOP program where she is being treated for depression and anxiety. I last saw the patient 3 weeks ago and at that time no medication changes were made. The patient states that she does not feel that she is improving much during the IOP program. In discussions with staff they also feel that not much progress has been made. The patient seems to have strong core beliefs that she is unable to change or lacks the energy required to change herself thinking. If the patient is not working and not achieving in school she feels then that she is worthless. She states that her mood remains depressed. She has very low energy overall during the day. She has some thoughts that she would not care if she still. She denies any suicidal ideation, homicidal ideation, plan for suicide, hallucinations or delusions. Long discussion was had about the need for therapy to work on changing core beliefs and discussion was had about how this is hard work and take some time. The patient states I do not have the energy to do that work. She feels she is having trouble just accomplishing her activities of daily living. Current psych medications: Pristiq 100 mg p.o. daily (x4 months now); Strattera 25 mg p.o. daily (x3 months); vitamin D; Lamictal 50 mg daily added several weeks ago which we will increase to 100 mg p.o. daily tomorrow. Current Psychiatric Medications: [] See above Mental Status Examination: [] Patient is a 31-year-old overweight female who is seen wearing glasses and is casually dressed and groomed with good hygiene. She is ambulatory with a normal gait and has no psychomotor agitation or retardation. Speech is normal rate and rhythm and fluent with no pressure. Eye contact is good. Mood is depressed and mildly hostile at times. Affect is full and normal. Thought process is goal-directed and organized. Thought content: There is evidence of passive thoughts of at times. There is no evidence of suicidal ideation, homicidal ideation, plan for suicide, hallucinations or delusions. Reality testing is intact. Intelligence is above average. Judgment is intact. Insight is fair. Impulsivity: Low to moderate. Diagnoses: [] 1. Major depressive disorder, recurrent, severe without psychosis 2. Generalized anxiety disorder 3. Primary support and work issues Plan: [] The patient will continue the IOP program at [facility] as the structure, support, education and group therapy will hopefully prevent worsening of the patient's symptoms which could require hospitalization. She felt safe during the interview and if it anytime she does not feel safe she will let us know or go to the emergency room. The risks, options, possible complications and side effects of the medications were again discussed with the patient and she understands and accepts these. After long discussion of options and possible side effects the patient agrees to stop her Strattera as she has not noticed much improvement from it. She agrees to try Wellbutrin XL 150 mg p.o. every morning. 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 Marciano with the patient that she should avoid any caffeine use the first few days on Wellbutrin and also that if she does get a tremor it is likely possibly to decrease or disappear after several days. Wellbutrin may be a good medication to give the patient improved energy level and motivation to try to do the work she needs to do at home and in therapy. Patient has a lot of frustration around the fact that the meds have not done their job. She will continue to follow-up with her outpatient therapist and medication provider and I will see the patient in follow-up in 1 week.
--- NOTE | 2022-02-04 09:05 | BH.SGPN.GN ---
Behaviors/Verbalizations/Mental Status: [] Eye contact is good. Motor activity is appropriate. Appearance is casual. Speech is Appropriate. Mood is depressed. Affect is flat. Thoughts are linear and logical. No evidence of psychosis. Reviewed daily check in sheet and pt reports 3/5 for suicidal thoughts and 0/5 for intent. Client Response/Progress/Benefit: [] Pt participated at times during the group discussion. Attentive. Emotion for today is depressed. Daily symptom tracker notes 5/5 for depression which has been baseline all week. Mental health wins include complete household tasks such as laundry and dishes. Another win was talking with support and getting some reassurance and suggestions for managing emotions. Struggling with coping and accepting world events (politics, economy, wars, etc) which she feels bombarded with in the news and social media and how this impacts her mental health. Will often cry after reading certain news headlines and feels that the world is horrible. Support and group provided suggestions on limited exposure to certain types of news as well as acceptance that certain events are out of her control. Some discussion on advocacy on certain events which she is passionate about however she states she has no energy or motivation to complete basic skills. Limited us of skills stating no energy or nothing works. Reports getting more apathetic and discouraged with the world and her mental health. Limited progress noted. IOP interventions have had limited benefit to patient. Will continue in IOP to maintain safety and increase healthy coping. Narrative Note: []
--- NOTE | 2022-02-04 10:05 | BH.SGPN.GN ---
Behaviors/Verbalizations/Mental Status: [] Eye contact is good. Motor activity is appropriate. Appearance is casual. Speech is Appropriate. Mood is depressed. Affect is flat. Thoughts are linear and logical. No evidence of psychosis. Client Response/Progress/Benefit: [] Pt was an active participant in group discussions. Attentive during psychoeducation on Healthy Relationships. Group worked together to identify benefits of healthy relationships which include; improves mental health, encouragement, motivation, accountability, validation, connection, someone to share experiences with, and personal growth. Group identified factors that contribute to a healthy relationship which included; communication, conflict resolution skills, trust, independence, and respecting boundaries. Group also identified factors that lead to unhealthy relationships which included; unrealistic expectations, over-reliance, assumptions, deception, and unhealthy habits. Actively participated in group experiential activity. Benefited from increased insight and awareness of benefits of healthy relationships and factors that contribute to unhealthy relationships. Will continue in IOP to maintain safety and prevent decompensation. Narrative Note: []
--- NOTE | 2022-02-04 11:08 | BH.SGPN.GN ---
Behaviors/Verbalizations/Mental Status: []Client alert and oriented, casually dressed and groomed. Eye contact good. Motor activity appropriate. Speech within normal limits. Affect congruent, mood dysthymic. Thoughts linear, logical, no signs of hallucinations or delusions. Client Response/Progress/Benefit: []Client responded well to session, engaged AEB providing input and taking notes. Worked with group to process challenge activity from previous group and identify how barriers and strengths demonstrated in activity can relate to those within own personal relationships. Able to identify healthy and unhealthy forces impacting her own current relationships. Client identified mutual respect, physical intimacy, and open/honest communication as current relationship strengths. Noted that her own negative core beliefs and doubts have unhealthy impacts on the relationship with her boyfriend at times. Client reflected that she would like to work on continuing to address her own self-talk to continue to improve the health of this relationship. Appeared to benefit from reflecting upon personal relationship strengths, as well as brainstorming strategies to build healthier relationships. Pt recommended to continue IOP tx to maintain safety, continue working on building healthy coping skills and prevent decompensation. Narrative Note: []
--- NOTE | 2022-02-04 14:34 | BH.MDN ---
Multi-Disciplinary Note - Note 60-min Individual Time Started:: 12:05 Date: 02/04/22 Purpose of session/treatment goals addressed:: Reviewed current progress and symptoms. Pt has not been responding to IOP interventions in the past several weeks. We met to obstacles to progress, review core beliefs, and assess for risk (client was a 3/5 for suicidal ideations today). Eye Contact:: Fair Motor Activity:: Appropriate Appearance:: Casual Speech:: Appropriate Mood:: Irritable, Depressed Affect:: Flat Thoughts:: Linear, Logical, No evidence of hallucinations/delusions noted Staff Interventions:: thought challenging, strengths perspective, completed risk assessment / safety planning Client Response:: Pt presents today depressed. States It takes too much effort to get better ... Why should I have to work twice as hard on my depression as everyone else. She is focused on world events, the declining economy, politics, and the overall negative outcome of the world. Ruminating on recent developments including overturning [place] in [place] and the impact that extremists in political positions are impacting the future. These concerns along with her own financial and mental health struggles have her believing that its pointless. She denies active suicidal ideations, plan, or intent. Protective factors are her BF and parents. I would never hurt myself b/c I know it would devastate them. Future-oriented (looking forward to movie night with friends tomorrow). Has plans this afternoon and weekend. Believes that her passive thoughts of and hopelessness have increased since this past weekend. Trigger was conversation with mother about not participating in local art show due to her depression. This has validated her belief that her depression is insurmountable. She is dismissive of many suggestions stating that none of them work or she is too tired to try. No pleasure in any activities. When asked what her expectations are she reports; more energy, chores/ADLs would be easier, and pleasure in activities. She has insight that she is dismissive of suggestions and how this is self-sabotage or reinforcing the depressive cycle. She often gets angry when discussing societal expectations and the idea of working at a job for 40 hours a week for the rest of her life just to reture and . Significant absolute thinking. Challenged absolute thinking and pointed to research indicating the increasing power that employees have over employers. 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 Also pointed out other alternative lifestyles such as modest living, living off the land with minimal income, etc. Pointed out research indicating that society is turning away from following social norms in greater detail and living more fulfilling lives. She responded well to this and was engaged in conversation appearing more hopeful. She actually discussed some possible career and education options with increased independence, flexibility, and creativity. Passion to help others. Risks/Concerns:: Pt denies active suicidal ideations, plan, or intent. No hx of attempts. She reports mainly passive thoughts of (occasional methods) which has been occurring for the past year. Increased frequency and intensity since this past weekend, however adamantly denied plan or intent with therapist and on daily check-in sheet. Future-oriented. Protective factors (BF, parents). Progress Toward Goals/Plan:: Limited progress in the past several weeks. Limited benefit from all IOP interventions (group, indv, and medications). Significant cognitive distortions and mistaken beliefs exacerbated by world events for which she has no control. Ruminates extensively and reports no energy to utilize skills or change daily routine. Provided psychoeducation on how feeling powerless can impact perception and energy. Provided handout with research and suggestions. Responds most to gentle challenges and reframes on her perspective on the world, politics, and jobs/career. She is not in a place to do this independently ( too tired) and relies on therapist, BF, and family to reframe and reassure. Will continue to provide encouragement and guidance on using these skills independently. Will continue in IOP to maintain safety, increase health coping, and improve functioning. Will increase individual counseling sessions. Time Stopped:: 12:05
--- NOTE | 2022-02-09 09:05 | BH.SGPN.GN ---
Behaviors/Verbalizations/Mental Status: [] Eye contact is good. Motor activity is appropriate. Appearance is casual. Speech is Appropriate. Mood is euthymic. Affect is full. Thoughts are linear and logical. No evidence of psychosis. Reviewed daily check in sheet and no reports of suicidal ideations or intent. Client Response/Progress/Benefit: [] Pt participated at times during group discussions. Attentive. Provided appropriate feedback. Emotion for today is unsettled. Daily symptom tracker notes 4% for depression. States I feel nervous to be excited. Shared that she had a very pleasant weekend with not overwhelming depression. Reported that she was more active, more energetic, and less angry. She met with her PCP to r/o any medical issues which could have impacted her mental health including thyroid and chronic fatigue. She also participated in an advocacy event for women's rights which made her feel less powerless over national events which can impact her. I did have the overwhelming wieght over me regarding political and societal issues. Progress noted per pt report. Benefited from group support and encouragement. Will continue in IOP to maintain safety, increase health coping, and improve functioning to return to work. Narrative Note: []
--- NOTE | 2022-02-09 10:10 | BH.SGPN.GN ---
Behaviors/Verbalizations/Mental Status: [] Eye contact is good. Motor activity is appropriate. Appearance is casual. Speech is Appropriate. Mood is euthymic. Affect is full. Thoughts are linear and logical. No evidence of psychosis. Client Response/Progress/Benefit: [] Pt was an active participant in group discussions. Attentive during psycho-education on 4 types of conflict styles (Competing, Collaborating, Avoiding, and Accommodating). Worked with group to define conflict and identify how conflict is helpful. With peers identified barriers to addressing or managing conflict which included: fear of upsetting others, embarrassing self, abandonment, past negative experiences with conflict, and shutting down. Pt believes her conflict style is avoidant or accommodating. Benefited from group due to increase insight and awareness of conflict, conflict styles, and obstacles to managing conflict. Will continue in IOP to maintain safety and prevent decompensation. Narrative Note: []
--- NOTE | 2022-02-09 13:34 | BH.MDN ---
Multi-Disciplinary Note - Note 45-min Individual Time Started:: 12:05 Date: 02/09/22 Purpose of session/treatment goals addressed:: Reviewed current symptoms and progress in IOP. Addressed treatment plan goals 1 and 2. Eye Contact:: Good Motor Activity:: Appropriate Appearance:: Casual Speech:: Appropriate Mood:: Euthymic Affect:: Full Thoughts:: Linear, Logical, No evidence of hallucinations/delusions noted Staff Interventions:: thought challenging, discharge planning, strengths perspective Client Response:: Pt reports that she had a great weekend. She reported more energy and motivation stating things didn't seems as overwhelming or difficult. She participated in an advocacy march in [place] [employer] for women's rights which helped her feel like I was actually doing something as opposed to reading articles (which exacerbated depression and feeling powerlessness). Her BF accompanied her during the march however she felt he should have been more engaged and passionate about the subject. Gently challenged cognitive distortions of should/musts and absolute thinking regarding this. Insight the he can be support and concerned but doesn't have to be just as passionate as she. Struggles with thoughts that she should be doing more with to advocate and change atrocities in the world. Again we challenged her perception that she is not active in making changes through her daily decisions. Discussed degrees to advocating and boycotting certain companies and products. Stressed having control and power over her actions. Overall responded well. Risks/Concerns:: No risks or concerns noted. Progress Toward Goals/Plan:: Progress noted since last week. She reports improved mood and energy. Challenging automatic thoughts and perceptions which has improved mood. Compliant with new medication with no side effects. Was witnessed drawing on the board in group today which she reports is indication that she is starting to enjoy pleasurable activities again. Responding well to medication change, increased individual sessions, and gently challenging core beliefs and perceptions. Plan is to continue in [facility] this week. If she remains stable will discharge next week. Time Stopped:: 12:50
--- NOTE | 2022-02-11 09:10 | BH.SGPN.GN ---
Behaviors/Verbalizations/Mental Status: [] Eye contact is good. Motor activity is appropriate. Appearance is casual. Speech is Appropriate. Mood is depressed Affect is flat. Thoughts are linear and logical. No evidence of psychosis. Reviewed daily check in sheet and pt reports 1/5 for suicidal thoughts and 0/5 for intent. Client Response/Progress/Benefit: [] Pt participated at times during the group discussion. Attentive. Daily symptom tracker notes 5/5 for depression. Emotion for today is tired. She completed blood work yesterday and reports that it all came back normal meaning no concerns for thyroid or chronic fatigue issues which perhaps could have caused low energy. She remains overwhelmed with sociopolitical events occurring in the nation. Ruminating extensively and feels powerless to invoke change. She seeks reassurance and guidance from her support (mother and aunt) which is helpful in the moment however has not been a long-term solution. Group provided feedback and suggestions regarding strategies for managing external news stories via social media and ideas to filter out and ignore.Limited progress noted. Struggles to reframe and challenge thoughts independently often relying on support. Benefited from group support, encouragement, and feedback. Will continue in IOP to maintain safety, increase health coping, and improve functioning. Narrative Note: []
--- NOTE | 2022-02-11 10:16 | BH.SGPN.GN ---
Behaviors/Verbalizations/Mental Status: []Client alert and oriented, casually dressed and groomed. Eye contact good. Motor activity appropriate. Speech within normal limits. Affect congruent, mood depressed. Thoughts linear, logical, at times appearing distracted by own thoughts. no signs of hallucinations or delusions. Client Response/Progress/Benefit: []Client initially struggling to engage but as session progressed responded well AEB sharing throughout and listening attentively to others. Client participated in group discussion defining boundaries and why having healthy boundaries is important. Client provided an example of the importance of healthy boundaries, stating ?boundaries can keep you from taking on too much?. Client appeared to connect to psychoeducation on types of boundaries, including physical, emotional, and intellectual. Client listened attentively and shared throughout discussion on examples of different types of boundaries. Client noted she has struggled with communicating when her boundaries have been violated. Client appeared to benefit from increased knowledge of the types of boundaries and increased self-awareness of personal boundaries. Will continue IOP treatment to improve mood stability and depression management skills, increase thought challenging, and prevent decompensation. Narrative Note: []
--- NOTE | 2022-02-11 14:45 | BH.MDN_ITS ---
Multi-Disciplinary Note - Note 45-min Individual Time Started:: 12:15 Date: 02/11/22 Purpose of session/treatment goals addressed:: Reviewed current symptoms and progress in IOP. Addressed treatment plan goals 1 and 2. Eye Contact:: Poor Motor Activity:: Appropriate Appearance:: Casual Speech:: Appropriate Mood:: Irritable, Depressed Affect:: Flat Thoughts:: Linear, No evidence of hallucinations/delusions noted Staff Interventions:: thought challenging, CBT techniques Client Response:: Pt presents today reporting regression since 02/09/22. Reports that she was depressed with numerous crying spells yesterday. Continues to r uminate on events occurring in the world which she believes she has no control of power. Primary concern is the reversing of [place] and several news stories outlining the proposed changes to laws regarding contraception. She discussed with her friends her recent participation in a march to advocate and according to pt a friend minimized her advocacy and implied that her efforts will not evoke any real change. According to pt her friend then proceeded to discuss riots and unrest as only ways to make a difference. This led to pt feeling like nothing I did was effective and reverting back to feelings of powerlessness. We challenged this absolute thinking which was effective. Also discussed negative of letting others thoughts, perception, and beliefs impact her perspectives, thoughts, and behaviors. Pt has very strong absolute thinking .. But what if they are right?' Challenged right vs wrong, good vs evil, etc and impact that extremes can have. Its ok to be in the middle, right?. She has learned about cognitive distortions in group however has intellectually dismissed them on occasions. She wants to advocate, feel purpose, and make changes however is unsure how. Brainstormed possibilities with plan to reach out to local advocacy outlets to learn more. Risks/Concerns:: Pt reported 1/5 for suicidal thoughts today. Denies SI, plan, or intent. Long-standing SI. Does not present as imminent risk to self or others. Progress Toward Goals/Plan:: Limited progress in IOP level of care. Struggles to utilize skills due to not believing they will work or being too tired. She had 3-4 days of decreased depression and hopelessness as well as increase in energy and pleasure in activities due to part to feeling like she was not powerless of world events and daily events. This was easily erased after one conversation with friends where her progress and actions were minimized. She did not utilize skills or challenge cognitive distortions at all until talking with her mother and today with therapist. Plan is to continue next week in IOP with plan to discharge the week after. Sporadic improvement in the past week and hoping to instill skills that she can use independently. Time Stopped:: 13:00
--- NOTE | 2022-02-12 11:15 | BH.SGPN.GN ---
Behaviors/Verbalizations/Mental Status: [] Client alert and oriented, casually dressed and appropriately groomed. Eye contact good.. Motor activity WNL. Speech within normal limits. Affect constricted, mood dysthymic. Thoughts linear and intact. no signs of delusions or hallucinations. Client Response/Progress/Benefit: [] Client responded well to session AEB listening attentively to peers and providing some input throughout. Client reported she is able to set boundaries with others that ask too much of her. Client stated being able to set boundaries with others has been helpful with giving self time to engage in self-care and do things that she enjoys. Client struggled with seeing perspective that if is rigid with saying no to anything she doesn't like it could negatively impact relationships. Client contributed during psychoeducation on the different boundary styles. Participated in small group discussion brainstorming various strategies for improving healthy personal boundaries. Client agreeable to complete provided worksheet for homework, in which she is to identify if she has porous, rigid or healthy boundaries for emotional, physical, intellectual, sexual, material, and time boundaries. Seemed to benefit from increased awareness of how different boundary styles can impact mental health. Will continue IOP tx to increase consistent application of skills, increase positive thinking and prevent decompensation.
--- NOTE | 2022-02-15 09:01 | BH.SGPN.GN ---
Behaviors/Verbalizations/Mental Status: [] Eye contact is good. Motor activity is appropriate. Appearance is casual. Speech is Appropriate. Mood is euthymic. Affect is congruent. Thoughts are linear and logical. No evidence of psychosis. Reviewed daily check in sheet and no reports of suicidal ideations or intent. Client Response/Progress/Benefit: [] Pt was an active participant in group discussion. Attentive. Provided appropriate feedback. Pt identified mental health positive as having a good weekend. Pt stated she was able to have a good balance of being productive and having time to engage in activities that she enjoys. Pt stated additional positive as her medication is starting to help improve her attitude and ability to focus for the last week Pt stated she is starting to feel more optimist and hopeful about her life and future. Benefited from group support, encouragement, and feedback. Will continue in IOP to increase consistent use of healthy coping skills, continue to improve perspective and prevent decompensation.
--- NOTE | 2022-02-15 11:10 | BH.SGPN.GN ---
Behaviors/Verbalizations/Mental Status: []Client alert and oriented, casually dressed and groomed. Eye contact fair to good. Motor activity appropriate. Speech within normal limits. Affect congruent, mood content. Thoughts linear, logical, no signs of hallucinations or delusions. Client Response/Progress/Benefit: []Pt responded well to session AEB taking notes and providing input and examples throughout. Group discussed the different categories of coping skills which included distraction, emotional release, grounding, self-love, and thought challenging. Pt created a coping skill menu identifying various skills to try in each category. Pt?s coping skill menu included: watching TV, singing loudly to music, going outside, reducing over-apologizing, and find the ?johnson? instead of only thinking in black and white. Appeared to benefit from increasing repertoire of healthy coping skills. Pt reports the recent medication was helpful and pt is feeling better this week. Will continue tx to promote mood stability, reduce negative thinking, and improve daily functioning. Narrative Note: []
--- NOTE | 2022-02-15 11:18 | BH.MDN ---
Multi-Disciplinary Note - Note 60-min Individual Time Started:: 10:10 Date: 02/15/22 Purpose of session/treatment goals addressed:: Reviewed progress and symptoms. Addressed treatment goals 1 and 2. Eye Contact:: Good Motor Activity:: Appropriate Appearance:: Casual Speech:: Appropriate Mood:: Anxious Affect:: Full Thoughts:: Linear, No evidence of hallucinations/delusions noted Staff Interventions:: thought challenging, CBT techniques, discharge planning Client Response:: Pt states I'm feeling better and I'm more hopeful. States that she is starting to feel more energy to do things again. Her weekend went well and she reports being more social. She also reports that she cleaned up the house and laughed a lot. When asked what she believes was different this weekend and last as opposed to several previous weekends of depression, low energy, and hopelessness she noted some different strategies. She limited her engagement with social media (news stories about world events, etc), took action on her advocacy (researched and got linked with local women's rights group), and utilized support/social aspects. She is also focusing less on completing her exercises (which she hates). She also applied for a job and got an interview which has helped her feel less hopeless. 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 Risks/Concerns:: No risks or concerns noted. Progress Toward Goals/Plan:: Progress noted per pt report. Overall improvement in her mood in the past week. She has had some low days however was able to utilize skills and thought challenging to help decrease depression. Since discussion on negative thoughts stemming from feeling powerless she has developed strategies to feel more in control of her life and the external issues (women's rights). She reported that rumination on external events often made her feel what is the point as she was bombarded with negative and depressing stories about women's rights on her social media. According to pt her medications appear to be helping, she is utilizing healthy strategies, and she is more hopeful. Plan is to discharge next week. She is linked with outpatient therapist and psychiatrist. She has a job interview upcoming. We discussed the aftercare program as additional option. Time Stopped:: 11:05
--- NOTE | 2022-02-15 12:32 | PCM.BH.PN_ITS ---
Progress Note Progress Note: History of Present Illness/Interim History: [] The patient is a 31-year-old female who is seen in follow-up at the [facility] behavioral health IOP program where she is being treated for depression and anxiety. I last saw the patient 12 days ago and at that time she was started on Wellbutrin XL. The patient states that she feels she is doing well and she is tolerating the Wellbutrin well with no side effects. She has no tremor, despite the fact that she was worried that she would get a tremor. She feels that in the last few days her mood is improving and she feels less depressed and more hopeful and less sad. She is a little more motivated. Her energy level is still low early in the morning but then her energy level increases to adequate amounts of energy later in the day. She feels that she is able to feel more michelle in life when she was unable to feel michelle several weeks ago. She still remains upset about the possible overturning of [place] but she is planning to volunteer and educate her self in order to be proactive about this. She denies any passive thoughts of now. She denies any suicidal ideation, homicidal ideation, plan for suicide, hallucinations or delusions. She is much better able to accomplish activities of daily living. Current Psychiatric Medications: [] Wellbutrin XL 150 mg p.o. every morning (x12 days now); Pristiq 100 mg p.o. daily (x4 months now); Strattera was discontinued 12 days ago; Lamictal 100 mg p.o. daily (dose increased 12 days ago). Mental Status Examination: [] The patient is a 31-year-old female who is casually dressed and groomed with good hygiene and is ambulatory with a normal gait. She has no psychomotor agitation or retardation. She is cooperative and appears brighter than usual. Mood is mildly depressed. Affect is full and normal. Thought process is goal-directed and organized. Thought content: There is no evidence of passive thoughts of , suicidal ideation, homicidal ideation, plan for suicide, hallucinations or delusions. Judgment is intact. Insight is improving. Impulsivity is low to moderate. Diagnoses: [] 1. Major depressive disorder, recurrent, severe without psychosis 2. Generalized anxiety disorder 3. Primary support and work issues Plan: [] The patient will continue the IOP program at [facility] as the structure, support, education and group therapy will hopefully prevent worsening of the patient's symptoms which could require hospitalization. If she continues to improve she may be discharged next week. She felt safe during the interview and if it anytime she does not feel safe she will let us know or go to the emergency room. The risks, options, possible complications and side effects of the medications were again discussed with the patient and she understands and accepts these. Discussion was had also about the possible side effect of the oral contraceptive pills increasing the dose of Lamictal that the patient requires for therapeutic effect. In addition the patient was advised to use condoms if she has sexual activity to prevent as the Lamictal can interfere with the control pills as she gets on the higher doses and even at this dose. The patient will continue to follow-up with her outpatient therapist and medical providers and I will see the patient in follow-up while she is in the IOP program.
--- NOTE | 2022-02-17 09:00 | BH.SGPN.GN ---
Behaviors/Verbalizations/Mental Status: []Pt alert and oriented, casually dressed and groomed. Eye contact good. Motor activity appropriate. Speech within normal limits. Affect constricted, mood irritable. Thoughts linear, logical, no signs of hallucinations or delusions. Reviewed pt?s symptom tracker, no risk for suicidal ideation, plan, or intent as of 02/17/22 Client Response/Progress/Benefit: []Pt responded well to session, offering feedback to peers. Pt's last day of IOP tx and pt acknowledged progress, but pt also reports feeling overwhelmed today by the political climate. Pt receptive to feedback and discussion on change and patience. Pt shared her mental health wins as exercising, talking to her mom, grocery shopping, and showering yesterday as well as getting more involved in activism. Pt appeared to benefit from genital thought challenging and connecting with peers. Pt will discharge from IOP tx today and continue with outpatient counseling. Narrative Note: []
--- NOTE | 2022-02-17 11:10 | BH.SGPN.GN ---
Behaviors/Verbalizations/Mental Status: [] Eye contact is good. Motor activity is appropriate. Appearance is casual. Speech is Appropriate. Mood is depressed. Affect is flat. Thoughts are linear and logical. No evidence of psychosis Client Response/Progress/Benefit: [] Pt participated at times during group discussions. Attentive at times during psychoeducation on the 4 A's of Coping with Stress (Avoid, Alter, Adapt, Accept). Participated in experiential activity in which group members had to utilize stress management skills in the moment. Pt agreed with group consensus that activity caused her to be frustrated, tense, and anxious. She shared skills that she utilized in the moment to continue with group activity.Benefited from processing in the moment stress management strategies and identifying new ways to cope with stress. Will continue in IOP to prevent decompensation, stabilize mood, and maintain safety. She did not elaborate or complete worksheet on stressors and appeared distracted throughout the group. Narrative Note: []
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
--- NOTE | 2022-02-23 09:00 | BH.SGPN.GN ---
Behaviors/Verbalizations/Mental Status: [] Eye contact is good. Motor activity is appropriate. Appearance is casual. Speech is Appropriate. Mood is depressed. Affect is flat. Thoughts are linear and logical. No evidence of psychosis. Reviewed daily check in sheet and no reports of suicidal ideations or intent. Client Response/Progress/Benefit: [] Pt participated at times during the group discussions. Attentive. Mental health wins include taking a break from all the political stress She limited her social media use yesterday and noticed positive benefits. She has sporadically utilized this strategy to help with apathy, ruminations, and hopelessness. Continues to report low energy and motivation however my outlook is much better. Reports improvements in areas of her life including no numbness or apathy. Stressor over the weekend is that she was homesick. Her family had a holiday get-together in [place] which her and BF decided not to attend (due to length of drive). Progress noted per pt report. Benefited from group support, feedback, and encouragement. Will continue in IOP to maintain gains and prevent decompensation. Narrative Note: []
--- NOTE | 2022-02-23 12:00 | BH.MDN_ITS ---
Multi-Disciplinary Note - Note 60-min Individual Time Started:: 10:10 Date: 02/23/22 Purpose of session/treatment goals addressed:: Reviewed progress and current symptoms. Addressed treatment goal 1 (obj 1/2) and goal 2(obj 1). Eye Contact:: Fair Motor Activity:: Appropriate Appearance:: Casual Speech:: Appropriate Mood:: Irritable, Depressed Affect:: Full Thoughts:: Linear, Logical, No evidence of hallucinations/delusions noted Staff Interventions:: thought challenging, CBT techniques Client Response:: Pt attended two women's rights advocacy group meetings since last session. She discussed the benefits and frustrations regarding these meetings. Engaged however states I should be doing more. Open to discussion on how she is doing more than she was 3 weeks ago and is more involved in the discussions for change. She continues to reach out and network regarding local events. In regards to her depression pt reports decreased apathy, numbness, and irritability. She reports that her energy level and motivation continue to be low. Insight into her progress. She is more consistently utilizing healthy coping skill of limiting social media which decreases her rumination and hopelessness. She did not get the job she interviewed for last week and states just more rejection. We then discussed some concrete steps that she can take in the next few months to increase social engagement and create purpose/goals. She wants to volunteer and we identified to local options. She talked about her expectations for a job, her disappointment with jobs in the past, and her obstacles to obtaining a job. Risks/Concerns:: no risks or concerns noted. Progress Toward Goals/Plan:: Progress noted per pt report. She is able to identify healthy coping skills, negative talk messages, cognitive distortions, anxiety triggers, and ways to calm anxiety, however it has been a challenge for her to utilize healthy coping skills consistently. She attributes lack of consistent use of skills to low energy I just don't have the energy to do things. She has met with her PCP to rules out any medical issues that could be causing low energy with no significant findings. Her lack of energy and motivation have been the biggest obstacle to significant progress. 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 Responds well to thought-reframing, challenging cognitive distortion/mistaken beliefs, and adjusting unrealistic expectations in session however has not been able to complete these skills independently. Plan is to discharge next [facility] as she is no longer benefiting from IOP level of care. She does report progress however current obstacles are related to low motivation, energy, and frustrations with finding a job. Time Stopped:: 11:45
== END 2022-02-23 23:59 ==
LOC: BHIOP 08:00
PROVIDERS: Referring Provider Psychiatry & Neurology Psychiatry; Visit Provider Psychiatry & Neurology Psychiatry
DX: F33.2 Major depressive disorder, recurrent severe without psychotic features (principal); F41.1 Generalized anxiety disorder; Z79.899 Other long term (current) drug therapy
CPT/HCPCS: 99214; H2012; H2020; S9480; 90834; 90837

== ENCOUNTER → 2022-02-10 | Outpatient (CLI) | payer MEDICAID, SELFPAY ==
[2022-02-10 08:32] LABS: Hematocrit 41.7 % (37-47); Hemoglobin 14.3 g/dL (12.0-15.0); Mean Corp Hgb Conc 34.3 g/dL (32-36); Mean Corpuscular Hgb 29.4 pg (27.0-32.0); Mean Corpuscular Volume 85.8 fL (81-99); Mean Platelet Vol. 10.9 fl (6.2-12.0); Platelet Count 276 K/mm3 (150-450); RBC Distribution Width CV 11.8 % (11.6-14.6); RBC Distribution Width SD 36.5 fl (35.1-43.9); Red Blood Count 4.86 M/mm3 (4.2-5.4); White Blood Count 5.5 K/mm3 (4.4-11.0)
[2022-02-10 09:00] LABS: Vitamin D,25 Hydroxy 47.3 ng/mL
[2022-02-10 09:07] LABS: AST(SGOT) 16 U/L (15-37); Alanine Aminotransfer ALT/SGPT 26 U/L (13-56); Albumin, Serum 3.6 g/dL (3.2-5.0); Alkaline Phosphatase 73 U/L (45-117); Anion Gap 6 (5-15); BUN 14 mg/dL (7-18); BUN/Creat Ratio 15.9 RATIO (10-20); Calcium,Total 8.8 mg/dL (8.5-10.1); Chloride 107 mmol/L (98-107); Cholesterol 212 mg/dL (200); Creatinine, Serum 0.88 mg/dL (0.55-1.02); EST Glomerular Filtration Rate 80 mL/min (>60); Est Glom Filt Rate - Afr Amer 97 mL/min (>60); Globulin 3.6 g/dL (2.2-4.2); Glucose 87 mg/dL (74-106); High Density Lipoprotein 40 mg/dL; Potassium 4.1 mmol/L (3.5-5.1); Protein, Total 7.2 g/dL (6.4-8.2); Sodium Level 137 mmol/L (136-145); Triglycerides 93 mg/dL; Very Low Density Lipoprotein 19 mg/dL (5-40)
[2022-02-10 09:17] LABS: Hemoglobin A1c 4.4 % (3.8-5.6)
== END | disposition home or self-care (01) ==
LOC: LAB 08:16
DX: Z00.00 Encounter for general adult medical examination without abnormal findings (principal); E55.9 Vitamin D deficiency, unspecified; L29.8 Other pruritus; F41.9 Anxiety disorder, unspecified; Z13.220 Encounter for screening for lipoid disorders; Z83.3 Family history of diabetes mellitus
CPT/HCPCS: 36415; 80053; 80061; 82306; 83036; 84443; 85027

== ENCOUNTER 2022-02-24 07:23 | Outpatient (RCR) | payer MEDICAID, SELFPAY ==
[2022-02-24 01:02] VITALS: BP 120/84; PULSE 96
--- NOTE | 2022-02-25 09:05 | BH.SGPN.GN ---
Behaviors/Verbalizations/Mental Status: []Pt alert and oriented, neatly dressed and groomed. Eye contact fair. Motor activity appropriate. Speech within normal limits. Affect flat, mood depressed. Thoughts linear, logical, no signs of hallucinations or delusions. Reviewed pt?s symptom tracker, no risk for suicidal ideation, plan, or intent as of 02/25/22 Client Response/Progress/Benefit: [] Pt responded well to session, attentive and providing supportive statements to peers. Pt reports feeling depressed this morning due to pt's worry about the political environment and state of the world. Pt has been increasing her activism which helps at times, but pt has struggled throughout IOP with helplessness and becoming quickly discouraged. Pt receptive to thought challenging by therapist and able to see she is doing some important activism. Pt will discharge from IOP tx today as pt has received the maximum benefit from the program. Pt will continue working with her individual counselor. Narrative Note: []
--- NOTE | 2022-02-25 10:20 | BH.SGPN.GN ---
Behaviors/Verbalizations/Mental Status: [] Pt alert and oriented, casually dressed and groomed. Eye contact fair to good. Motor activity appropriate. Speech within normal limits. Affect congruent, mood dysthymic. Thoughts linear, logical, no signs of hallucinations or delusions. Client Response/Progress/Benefit: [] Pt responded well to session AEB sharing and listening attentively to others. Group discussed the benefits of managed anger and anger as a secondary emotion. Pt completed anger iceberg worksheet, reporting outward personal signs of anger as crying, shutting down, and focusing on the negatives. Identified underlying emotions that contribute to anger including depression, social issues/politics, not meeting own expectations. Appeared to benefit from increased knowledge of the underlying emotions that impact anger and increased self-awareness of the internal and external consequences of anger. Will discharge from tx and continue with outpatient counseling to maintain gains, prevent decompensation, and continue to improve consistent skill application. Narrative Note: []
--- NOTE | 2022-02-25 14:00 | BH.DS_ITS ---
Discharge Summary - Demographics Date of Admission:: 12/25/21 Discharge Date: 02/25/22 Presenting Problems at Admission:: Client is a 31 year old female with a long history of depression and anxiety which she reports began in high school. Client was referred to [facility] by her individual outpatient therapist due to increased depression impacting her ability to complete household tasks and perform activities of daily living. Client reports her symptoms increasing following having pneumonia almost a year ago, with her depression being episodic prior. Client currently endorses low motivation, lack of interest, oversleeping, worthlessness, hopelessness, anhedonia, trouble concentrating, and rumination. Client reports family history of Bipolar Disorder, Depression, Alcoholism, and drug abuse. Client reports cognitive distortions of catastrophizing and mental filtering. Client denies AoD issues or family history of abuse. Denies history of trauma, emotional, verbal, physical abuse. Client?s current symptoms are impacting her familial, occupational, and social functioning. Discharge Diagnoses:: Diagnosis #1:: F33.2 Major Depressive Disorder, recurrent, severe without psychosis. Diagnosis #2:: Generalized Anxiety Disorder Reason for Discharge:: No longer meets criteria for [facility] level of care. - Treatment Progress During Treatment & Response: According to DSM-5 Cross Cutting scales pt had an overall 50% reduction in symptoms since admission. Scores on her depression and anxiety domains remained unchanged indicating no decompensation, however limited progress (Refer below). Pt's scores did indicate a 100% reduction in the dissociation domain and an 85% improvement in personality functioning indicating that she feels that she is more aware of what she wants out of life and feels closer to others/relationships. She reports that her energy level and motivation continue to be low. She is more consistently utilizing healthy coping skill of limiting social media which decreases her rumination and hopelessness. Progress noted per pt report. She is able to identify healthy coping skills, negative talk messages, cognitive distortions, anxiety triggers, and ways to calm anxiety, however it has been a challenge for her to utilize healthy coping skills consistently. She attributes lack of consistent use of skills to low energy I just don't have the energy to do things. She has met with her PCP to rules out any medical issues that could be causing low energy with no significant findings. Her lack of energy and motivation have been the biggest obstacle to significant progress. 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 Responds well to thought-reframing, challenging cognitive distortion/mistaken beliefs, and adjusting unrealistic expectations. Pt often feels powerless over mood and outside socio-political events which lead to ruminations, hopelessness, and apathy. She was encouraged to become more active and engaged in advocacy which has decreased feeling powerless, Issues Still to be Addressed:: Low energy and motivation, independent use of coping skills, ruminating, cognitive distortions, mistaken beliefs, and depression. Discharge Recommendations/Instructions:: Pt has scheduled appointment with Nancy Gutierrez at [facility] for individual counseling. She also has appointment scheduled with Dr. Lemus for psychiatry next week some time. She was offered to attend aftercare with [facility] however never fully committed. Discharge Handout: Complete Discharge Handout with client on aftercare options and continuity of care.
== END 2022-02-25 12:16 | disposition home or self-care (01) ==
LOC: BHIOP 07:23
PROVIDERS: Referring Provider Psychiatry & Neurology Psychiatry; Visit Provider Psychiatry & Neurology Psychiatry
DX: F33.2 Major depressive disorder, recurrent severe without psychotic features (principal); F41.1 Generalized anxiety disorder; Z79.899 Other long term (current) drug therapy
CPT/HCPCS: H2020

== ENCOUNTER 2022-05-20 13:58 | Observation (INO) | payer MEDICAID, SELFPAY ==
[2022-05-18 15:28] LABS: Hematocrit 42.1 % (37-47); Hemoglobin 14.6 g/dL (12.0-15.0); Mean Corp Hgb Conc 34.7 g/dL (32-36); Mean Corpuscular Hgb 29.7 pg (27.0-32.0); Mean Corpuscular Volume 85.6 fL (81-99); Mean Platelet Vol. 10.6 fl (6.2-12.0); Platelet Count 312 K/mm3 (150-450); RBC Distribution Width CV 11.7 % (11.6-14.6); Red Blood Count 4.92 M/mm3 (4.2-5.4)
[2022-05-20] VITALS (27 sets, daily range): BP systolic 90–124; BP diastolic 74–93; PULSE 85–128; RESP 14–18; TEMP 36.6–37; O2SAT 87–100; BMI 25.3
--- NOTE | 2022-05-20 | FALS_PTH ---
PATIENT: LOPEZ MUNOZ LOC: [facility] U#:[id number] AGE/SX: 31/F ROOM: [facility] RE05/20/[address]: Dr. Stanton Varma DO : 1990 BED: 1 DIS: 05/21/2022 SPEC #: [id number] RECD: 05/20/22 13:25 STATUS: MALKA GIRISH #: [id number] LEROY: 05/20/22 00:[address]: Mildred Fonseca DEPT: SURGICAL PATHOLOGY RECD BY: Jasmeet Navarro ENTERED: 05/20/22 13:25 SP TYPE: FALL TUBES OTHR DR: Taya Murry, [employer]-C [facility] Tissues: Fallopian tube Procedures: Surgery Specimen Level II HEADER OPERATION: Laparoscopic salpingectomy PRE-OP DIAGNOSIS: Elective sterilization TISSUE SUBMITTED: Bilateral fallopian tubes MICROSCOPIC DIAGNOSIS Right and left fallopian tubes, bilateral salpingectomies: Complete cross-sections of fallopian tubes with no pathologic change. AM:ronny 05/21/2022 MICROSCOPIC DESCRIPTION Slides are reviewed. GROSS DESCRIPTION Received in fixative is one container labeled with the patient's name and designated bilateral fallopian tubes. The specimen consists of two fallopian tubes with an average length of 6.5 cm and has an average diameter of 0.5 cm. Both fallopian tubes have normal fimbriated ends. No mass lesions are identified. Upper Doubler sections are submitted in two cassettes as follows: 1 - one fallopian tube, 2??the other fallopian tube. / AM:ronny 05/20/2022 TC:4 CPT: 87022 x2
[2022-05-20 07:46] LABS: Internal QC Validated? YES +Cl - CLEAR BKGD; Pregnancy, Urine Negative Negative
[2022-05-20] MEDS: Lactated Ringers 1,000 ML 15 ML IV (07:59)
--- NOTE | 2022-05-20 09:03 | PCM.DC ---
Discharge Instructions Diet Discharge Diet: No restrictions Activity Discharge Activity: May Drive (Once you are more than 24 hours out from surgery, and you feel strong enough to slam on a brake or turn a steering wheel sharply) and May Shower (Once you are more than 24 hours out from surgery) Return to work on:: 05/24/22 May resume sexual activity in: 1 week (No intercourse, tampons, or soaking in water for 1 week) Ice area for (Minutes): 15 Weight Bearing Status: Weight bearing as tolerated Lifting Restrictions: Nothing greater than 15 pounds for 1 week Dressing / Incision Call your doctor if your incision/area has: Continuous Slow Oozing, Sudden Increased Bleeding, Increased Pain/ Swelling, Increased Redness, Foul Smelling Discharge and Swelling at the incision site Call your doctor if you observe: Fever of 101 or Higher, Coldness, Increased Pain, Numbness or Tingling, Change in Color, Inability to urinate, Inability to have a bowel movement, Using more than 1 pad per hour, Shortness of breath, Dizziness, Fainting spells, Swelling in the ankles, Chest pain, Increased palpitations (irregular heartbeat), Calf discomfort and Uncontrolled pain Suture Line Care: Avoid Pulling/Pushing and Avoid Pinching/Bending Remove Dressing in: leave until fall off (There is glue over your incisions and suture underneath. The suture will dissolve over time. The glue will start to peel up. If it does you can remove it/peel it up, or cut off the peeled edges.) Cleanse incision/area with: Soap & Water (Let warm, mild soapy water run over the incision sites. Do not scrub) Follow Up Care Please Follow Up With: Mildred Fonseca DO When: 1-2 weeks Test Results: Test results from this visit will be discussed in further detail at your follow-up appointment, if applicable. Discharge Plan Admission Primary Reason for Your Visit: surgery Attending Provider: Mildred Fonseca [facility] Providers: Taya Murry Instructions Patient Instructions: Lap Fallopian Tube Ligation Dc Discharge Orders/Prescriptions Prescriptions: New oxycodone-acetaminophen [Percocet] 5-325 mg tablet 1 tab PO Q6H PRN (Reason: pain) 7 Days Qty: 10 0RF ibuprofen 600 mg tablet 600 mg PO Q6H PRN (Reason: pain) Qty: 30 0RF Continued cholecalciferol (vitamin D3) [Vitamin D3] 50 mcg (2,000 unit) Tablet 2,000 unit PO DAILY bupropion HCl [Wellbutrin XL] 150 mg tablet extended release 24 hr 150 mg PO DAILY 30 Days Qty: 30 2RF desvenlafaxine succinate [Pristiq] 100 mg Tablet Extended Release 24 Hr 100 mg PO DAILY Qty: 0 2RF lamotrigine 150 mg tablet 225 mg PO DAILY omega 5-eim-ihg-fish oil [Fish Oil] 1,200 (144-216) mg Capsule 1 cap PO DAILY Discontinued Control 1 tablet PO/SL DAILY Referrals / Follow Up: [facility] [Primary Care Provider] - Disposition Disposition (needs filled in before D/C Order can be placed): Home, Self Care
--- NOTE | 2022-05-20 09:06 | OP.PCM_ITS ---
Problems Associated Problem List Diagnoses (1) Sterilization: Report of Operation Date of Procedure: 05/20/22 Pre-Operative Diagnosis: Request for sterilization Post-Operative Diagnosis: As above Surgery/Procedure Performed:: Laparoscopic bilateral salpingectomy Description of Surgical Findings:: Normal appearing pelvis. Uterus appears arcuate. Bilateral fallopian tubes normal appearing. Left ovary is normal appearing. Small ~1 cm cyst present in right ovary. Surgeon: Mildred Fonseca refueling ramp attendant: Jayne Tejada [id number] Type of Anesthesia: General Special Medications: None Specimen's removed: Bilateral fallopian tubes Drains: None Estimated Blood Loss (mL): < 50 Fluids Replaced: 1400 cc Description of Procedure: She was taken to the operating room where general anesthesia was induced. She was prepped and draped in the dorsal lithotomy position using yellowfin stirrups. A weighted speculum was placed in the vagina to expose the cervix. The anterior lip of the cervix was grasped with a single-tooth tenaculum. A uterine manipulator was placed. Gloves were changed and attention was turned to the abdominal portion of the procedure. Local was infiltrated at all port sites. A infraumbilical incision was made to accommodate a 5 mm port. This port was placed under direct visualization using the laparoscope. Once confirmed intraperitoneal CO2 insufflation was initiated. The patient was placed in Trendelenburg. A left lateral 5 mm port was placed. A right lateral 5 mm port was placed. The uterus was elevated out of the pelvis. The uterus was noted to be arcuate appearing. Bilateral fallopian tubes were noted to be normal-appearing. The pelvis was normal. There was a small right ovarian cyst noted. Pictures were taken. The left fallopian tube was followed out to the fimbriated end. Using the LigaSure device the mesosalpinx was serially clamped, cauterized, and transected hugging the left fallopian tube. Once at the level of the cornua the left fallopian tube was transected. The left fallopian tube was removed. The same was performed on the right side to remove the right fallopian tube. Bilateral fallopian tubes were sent to pathology for review. Hemostasis was noted. The ports were removed. The abdomen was exsufflated. The port sites were closed with Monocryl and glue. The uterine manipulator was removed and a vaginal sweep was performed. The patient was taken to recovery room in stable condition. The shipping and receiving assistant helped with draping the patient, retraction during the case to remove the fallopian tubes, and closure. Grafts/Implants Used: None Procedure Start Time: 09:41 Procedure Stop Time: 10:18 Complications None Admit VTE Documentation VTE Present on Admission: No VTE Mechan Device Prophylaxis: SCD's
[2022-05-20] MEDS: Bupivacaine 0.25% 30 ML Vial (10:12)
[2022-05-20] MEDS: Ipratropium/Albuterol Sulfate 3 ML AMPUL.NEB INHALATION (11:14)
--- NOTE | 2022-05-20 12:03 | SUR.PHASEI ---
DR MISHRA NOTIFIED, LUNGS FINE CRACKLES RIGHT BASE TO MID-LUNG, FREQUENT HARSH COUGH, STATES SHE FEELS LIKE SHE NEEDS TO COUGH SOMETHING OUT. DIFFICULTY MAINTAINING SPO2 ON 2 L/MIN, INCREASE O2 TO 4 L/MIN WHICH IMPROVED SPO2 TO 91-97%. USING INCENTIVE SPIROMETRY, SPLINTING INCISION WHEN COUGHING. DR MISHRA ORDERED STAT PORTABLE CHEST XRAY, SPOKE WITH PATIENT.
--- NOTE | 2022-05-20 12:11 | RAD_ITS ---
STUDY: X-RAY CHEST REASON FOR EXAM: Female, 31 years old. POST-OP HYPOXIA TECHNIQUE: Single AP portable view of the chest. COMPARISON: None. FINDINGS: EKG electrodes are seen. The lungs are clear and expanded. There is no demonstrated pleural abnormality. Normal size heart. Normal mediastinum and mark. Normal visualized pulmonary arteries. Normal visualized aortic arch and descending thoracic aorta. Normal visualized thoracic spine. Normal visualized ribs, clavicles, and shoulders. There is no demonstrated abnormality of the visualized soft tissue structures of the upper abdomen. RAD/Chest 1 View (Portable) IMPRESSION: Normal x-ray examination of the chest. Electronically Signed: Edward Nieves MD at 12:26 EDT ,
--- NOTE | 2022-05-20 14:08 | PN.HOSP_ITS ---
Subjective Subjective Patient is a 31 y/o female with a PMH of depression who was admitted from the PACU o/a of post op hypoxia. Patient came in for outpatient bilateral salpingo- oophorectomy under gynecology service. Postop she was noted to be hypoxic and could not be weaned off of oxygen. Patient denied any shortness of breath but did see that she was coughing and thought she had coughed up some stuff. She does not wear oxygen at home and denied any fever or chills, any palpitations or dizziness, any nausea or vomiting. Patient was noted to be tachycardic but she did not feel like she was having any palpitations. She denies any history of any thyroid problems or any lung issues as well as any cardiac issues. She denies any recent long distance travel and has never had a DVT or PE. Review of systems otherwise negative. At time of review, blood pressure was 123/80 with heart rate up in the mid 120s. She was on 3 L of oxygen. She has been admitted to managed for postop hypoxia with concerns for possible aspiration. Objective Data Objective Data Vital Signs: Vital Signs Temp Pulse Resp BP Pulse Ox O2 Del Method O2 Flow Rate 98.6 F 116 H 16 116/86 H 92 Nasal Cannula 1 05/20/22 10:36 05/20/22 13:00 05/20/22 13:00 05/20/22 13:00 05/20/22 13:00 05/20/22 13:00 05/20/22 13:00 Oxygen Flow Rate (L/min) 1 Oxygen Delivery Method Nasal Cannula Weight: 125 lb 10.616 oz Body Mass Index (BMI) 25.3 Lab / Micro Data Result Diagrams: 05/20/22 14:09 05/20/22 14:09 Labs: Laboratory Results - last 24 hr 05/20/22 07:15: Urine Test Negative Radiography Diagnostic Testing: Radiology Impression Chest X-Ray 05/20/22 12:11 IMPRESSION: Normal x-ray examination of the chest. Electronically Signed: Edward Nieves MD at 12:26 EDT , Physical Exam Const alert, oriented x3 and no apparent distress HEENT head/scalp atraumatic, moist oral mucous membranes and oropharynx normal Head and Scalp: normocephalic Mouth: oral and palatal mucosa normal Eyes PERRL, EOMs intact bilaterally and conjunctivae normal Neck no lymphadenopathy and supple Resp normal respiratory effort, no retractions, no use of accessory muscles and clear to auscultation bilaterally Resp Narrative: On 3 L of oxygen Cardio regular rhythm, S1 normal heart sound, S2 normal heart sound and no murmurs Cardio Narrative: tachycardic, sinus tachycardia GI normal to inspection, nondistended, normoactive bowel sounds, soft to palpation, non-tender and non-distended Extremity normal to inspection, full ROM and no clubbing, cyanosis or edema Neuro oriented x3, CN's II-XII intact bilaterally, moves all extremities and no focal motor deficits Sensorium / Orientation: awake and alert Motor Exam: strength 5/5 throughout Psych affect normal Mood & Affect: anxious Assessment & Plan Assessment/Plan (1) Hypoxia: PLAN: Plan #Post op hypoxia * came in for outpatient bilateral salpingoopherectomy, and couldnt be weaned off oxygen afterwards * she was hypoxic down into the mid 80s. * Per anesthesiologist when she was being woken up from anesthesia, patient was noted to be coughing so there is concern for aspiration. * Chest x-ray showed no acute cardiopulmonary process and no evidence of ischemia. * In light of her tachycardia which is persistent, I do think it is prudent to get a CTA to rule out a PE though it is lower on my list of differentials. * Breathing treatments with bronchodilators. Titrate oxygen as needed for shortness of breath to maintain saturation above 90%. * ABGs ordered. * hold off on antibiotics for now as patient doesnt have any clear evidence of aspiration pneumonitis * #Anxiety and depression * On Wellbutrin and desvenlafaxine * #Seizure disorder: On lamotrigine DVT prophylaxis: SCDs for now Thank you for the courtesy of the consult. The hospitalist service will continue to follow with you. Charges/Coding Visit Charges Inpatient E&M: 26057 Subs Hosp L2
[2022-05-20 14:21] LABS: Absolute Lymphocyte Count 0.59 X10^3/uL (0.83-4.51); Absolute Neutrophil Count 9.9 X10^3/uL (2.0-7.7); Basophil# 0.01 X10^3/uL; Basophil% 0.1 % (0-1); Hematocrit 38.6 % (37-47); Hemoglobin 13.4 g/dL (12.0-15.0); Lymphocyte # 0.59 X10^3/ul (0.83-4.51); Lymphocyte % 5.5 % (19-41); Mean Corp Hgb Conc 34.7 g/dL (32-36); Mean Corpuscular Hgb 29.2 pg (27.0-32.0); Mean Corpuscular Volume 84.1 fL (81-99); Mean Platelet Vol. 10.4 fl (6.2-12.0); Monocyte# 0.23 X10^3/uL; Monocyte% 2.1 % (0-10); NRBC Flagged by Analyzer 0 % (0-5); Neutrophil # 9.93 X10^3/uL (2.7-7.7); Neutrophil % 91.8 % (47-70); POSITIVE DIFFERENTIAL YES; Platelet Count 256 K/mm3 (150-450); RBC Distribution Width CV 11.7 % (11.6-14.6); RBC Distribution Width SD 35.4 fl (35.1-43.9); Red Blood Count 4.59 M/mm3 (4.2-5.4); White Blood Count 10.8 K/mm3 (4.4-11.0)
[2022-05-20 14:27] LABS: Differential Indicated SCAN CRITERIA MET
--- NOTE | 2022-05-20 14:28 | CT_ITS ---
STUDY: CTA CHEST REASON FOR EXAM: Female, 31 years old. Hypoxia and tachycardia. Recent bilateral salpingectomy. RADIATION DOSAGE (If Supplied By Facility): CTDIvol = ( 4.27 ) mGy, DLP = ( 131.79 ) mGycm TECHNIQUE: The examination was performed with the intravenous administration of IV 100mL Isovue-370. Post-processing of the angiographic images was performed, with multiplanar reformation and 3D reconstruction. Individualized dose optimization techniques were used for this CT. COMPARISON: Comparison is made with prior chest radiograph done earlier in the day. FINDINGS: Normal enhancement of the main pulmonary artery and right and left pulmonary arteries. Normal enhancement of the bilateral peripheral pulmonary arteries. There is no demonstrated pulmonary embolism. Normal thoracic aorta and visualized great vessels. There is no demonstrated aortic dissection. Normal heart and pericardium. Normal mediastinum. Normal hilar regions. Normal visualized trachea and bronchi. The lungs are well expanded. Diffuse bilateral patchy areas of groundglass appearance in both upper and lower lobes. This may represent changes secondary to possible fluid overload. Follow-up recommended. Normal pleura. Normal chest wall structures. Normal osseous structures. Normal visualized upper abdomen. CT/CTA Chest W/WO Contrast IMPRESSION: No evidence of a pulmonary emboli. Bilateral focal areas of groundglass appearance involving both upper and lower lobes suggestive of possible fluid overload. Electronically Signed: Edward Nieves MD at 15:24 EDT ,
[2022-05-20 14:40] LABS: AST(SGOT) 49 U/L (15-37); Alanine Aminotransfer ALT/SGPT 28 U/L (13-56); Albumin, Serum 3.4 g/dL (3.2-5.0); Alkaline Phosphatase 85 U/L (45-117); Anion Gap 8 (5-15); BUN 14 mg/dL (7-18); BUN/Creat Ratio 20.3 RATIO (10-20); Calcium,Total 8.6 mg/dL (8.5-10.1); Chloride 105 mmol/L (98-107); Creatinine, Serum 0.69 mg/dL (0.55-1.02); EST Glomerular Filtration Rate 107 mL/min (>60); Est Glom Filt Rate - Afr Amer 129 mL/min (>60); Estimated Creatinine Clearance 108.25 ml/min; Globulin 3.3 g/dL (2.2-4.2); Glucose 110 mg/dL (74-106); Potassium 3.6 mmol/L (3.5-5.1); Protein, Total 6.7 g/dL (6.4-8.2); Sodium Level 138 mmol/L (136-145)
[2022-05-20 15:20] LABS: Differential Comment SCANNED
--- NOTE | 2022-05-20 15:36 | EKG12_ITS ---
Test Reason : tachy Blood Pressure : / mmHG Vent. Rate : 124 BPM Atrial Rate : 124 BPM P-R Int : 116 ms QRS Dur : 072 ms QT Int : 306 ms P-R-T Axes : 063 051 032 degrees QTc Int : 439 ms Sinus tachycardia Nonspecific T wave abnormality Abnormal ECG No previous ECGs available Confirmed by CORA JORDAN, PRESLEY ([id number]), editorial director DEVAN CHAVEZ ([id number]) on 05/24/2022 9:51:16 AM Referred By: Mildred Fonseca Confirmed By:SAMMI SHEPHERD MD
--- NOTE | 2022-05-20 17:06 | HP.PCM.OB_ITS ---
HPI - General General Date of Admission: 05/20/22 Date of Service: 05/20/22 Chief Complaint: hypoxia HPI Narrative LOPEZ MUNOZ, is a 31 F who is POD#0 s/p laparoscopic bilateral salpingectomy. Post op she was noted by anesthesia to have tachycardia and hypoxia, and it was recommended that she be admitted for this. My partner Dr. Ngoc Frederick examined patient in post op area, and patient reported no pain with a benign abdominal exam. [facility] Medical History (Updated 05/20/22 @ 17:[address] Mildred Fonseca, ) Alcohol use Generalized anxiety disorder Major depressive disorder, recurrent severe without psychotic features Syncope Wears glasses Home Medications cholecalciferol (vitamin D3) 50 mcg (2,000 unit) tablet (Vitamin D3) 2,000 unit PO DAILY suppliment 12/30/21 [History Last Taken 05/19/22 08:00] lamotrigine 150 mg tablet 225 mg PO DAILY depression 05/13/22 [History Last Taken 05/19/22 08:00] omega 5-zbm-tzh-fish oil 1,200 mg (144 mg-216 mg) capsule (Fish Oil) 1 cap PO DAILY 05/13/22 [History Last Taken 05/19/22 08:00] bupropion HCl 150 mg 24 hr tablet, extended release (Wellbutrin XL) 150 mg PO DAILY depression 05/20/22 [History Last Taken 05/19/22 08:00] desvenlafaxine succinate 100 mg tablet,extended release 24 hr (Pristiq) 100 mg PO DAILY depression 05/20/22 [History Last Taken 05/19/22 08:00] ibuprofen 600 mg tablet 600 mg PO Q6H PRN pain #30 tabs 05/20/22 [Rx Last Taken Unknown] levonorgestrel 0.15 mg-ethinyl estradiol 0.03 mg tablet 1 tab PO DAILY hormones 05/20/22 [History Last Taken 05/19/22] magnesium 250 mg tablet 250 mg PO DAILY suppliment 05/20/22 [History Last Taken 05/19/22 22:00] oxycodone-acetaminophen 5 mg-325 mg tablet (Percocet) 1 tab PO Q6H PRN pain 7 d ays #10 tabs 05/20/22 [Rx Last Taken Unknown] Allergy/AdvReac Type Severity Reaction Status Date / Time azithromycin AdvReac Other Verified 05/20/22 07:40 [From Zithromax Z-Karthikeyan] Surgical History (Updated 05/20/22 @ 17:[address] Mildred Fonseca, DO) Hx of wisdom tooth extraction Social History Smoking Status: Never smoker Vital Signs Vital Signs Vital Signs: 05/20/22 07:44 05/20/22 07:44 05/20/22 10:36 Temperature 98.6 F 98.6 F Temperature Source Temporal Temporal Pulse Rate 101 H 103 H Pulse Strength Respiratory Rate 16 15 Respiratory Pattern Normal Normal Blood Pressure 117/86 H 99/81 H Blood Pressure Mean 96 87 Blood Pressure Source Monitor Monitor Blood Pressure Position Semi-Fowlers Right Lateral Blood Pressure Location Left Arm Right Arm Baseline BP 117/86 Pulse Ox 99 Oxygen Delivery Method Room Air Nasal Cannula Oxygen Flow Rate (L/min) 4 05/20/22 10:40 05/20/22 10:45 05/20/22 11:00 Temperature Temperature Source Pulse Rate 101 H 112 H Pulse Strength Normal (2+) Respiratory Rate 16 15 Respiratory Pattern Blood Pressure 100/74 90/77 Blood Pressure Mean 82 81 Blood Pressure Source Monitor Monitor Blood Pressure Position Right Lateral Semi-Fowlers Blood Pressure Location Right Arm Left Arm Baseline BP 117/86 117/86 Pulse Ox 96 95 Oxygen Delivery Method Nasal Cannula Nasal Cannula Oxygen Flow Rate (L/min) 2 4 05/20/22 11:15 05/20/22 11:30 05/20/22 11:45 Temperature Temperature Source Pulse Rate 95 120 H 111 H Pulse Strength Respiratory Rate 16 16 16 Respiratory Pattern Blood Pressure 111/79 101/88 H 122/83 H Blood Pressure Mean 89 92 96 Blood Pressure Source Monitor Monitor Monitor Blood Pressure Position Semi-Fowlers Semi-Fowlers Semi-Fowlers Blood Pressure Location Left Arm Left Arm Left Arm Baseline BP 117/86 117/86 117/86 Pulse Ox 100 92 97 Oxygen Delivery Method Nasal Cannula Nasal Cannula Nasal Cannula Oxygen Flow Rate (L/min) 6 4 3 05/20/22 12:30 05/20/22 12:00 05/20/22 12:15 Temperature Temperature Source Pulse Rate 121 H 118 H 119 H Pulse Strength Respiratory Rate 16 18 16 Respiratory Pattern Blood Pressure 115/86 H 117/85 H 117/93 H Blood Pressure Mean 95 95 101 Blood Pressure Source Monitor Monitor Monitor Blood Pressure Position Semi-Fowlers Semi-Fowlers Semi-Fowlers Blood Pressure Location Left Arm Right Arm Left Arm Baseline BP 117/86 117/86 117/86 Pulse Ox 97 87 94 Oxygen Delivery Method Nasal Cannula Nasal Cannula Nasal Cannula Oxygen Flow Rate (L/min) 3 2 4 05/20/22 12:45 05/20/22 13:00 05/20/22 11:10 Temperature Temperature Source Pulse Rate 116 H 116 H 85 Pulse Strength Respiratory Rate 16 16 18 Respiratory Pattern Normal Blood Pressure 118/88 H 116/86 H Blood Pressure Mean 98 96 Blood Pressure Source Monitor Monitor Blood Pressure Position Semi-Fowlers Semi-Fowlers Blood Pressure Location Left Arm Left Arm Baseline BP 117/86 117/86 Pulse Ox 93 92 Oxygen Delivery Method Nasal Cannula Nasal Cannula Oxygen Flow Rate (L/min) 2 1 05/20/22 13:15 05/20/22 13:30 05/20/22 13:45 Temperature Temperature Source Pulse Rate 119 H 128 H 118 H Pulse Strength Respiratory Rate 17 16 15 Respiratory Pattern Blood Pressure 118/79 124/87 H 118/85 H Blood Pressure Mean 92 99 96 Blood Pressure Source Monitor Monitor Monitor Blood Pressure Position Semi-Fowlers Semi-Fowlers Semi-Fowlers Blood Pressure Location Left Arm Left Arm Left Arm Baseline BP 117/86 117/86 117/86 Pulse Ox 91 92 94 Oxygen Delivery Method Nasal Cannula Room Air Nasal Cannula Oxygen Flow Rate (L/min) 2 4 4 05/20/22 14:00 05/20/22 14:15 05/20/22 14:30 Temperature Temperature Source Pulse Rate 120 H 97 123 H Pulse Strength Respiratory Rate 16 16 16 Respiratory Pattern Blood Pressure 115/74 123/80 H 115/83 H Blood Pressure Mean 87 94 93 Blood Pressure Source Monitor Monitor Monitor Blood Pressure Position Semi-Fowlers Semi-Fowlers Semi-Fowlers Blood Pressure Location Left Arm Left Arm Left Arm Baseline BP 117/86 117/86 117/86 Pulse Ox 98 97 95 Oxygen Delivery Method Nasal Cannula Nasal Cannula Nasal Cannula Oxygen Flow Rate (L/min) 4 4 4 05/20/22 14:39 05/20/22 15:24 Temperature 98.3 F 97.8 F Temperature Source Temporal Oral Pulse Rate 123 H 128 H Pulse Strength Respiratory Rate 16 18 Respiratory Pattern Blood Pressure 115/83 H 122/80 H Blood Pressure Mean 93 94 Blood Pressure Source Monitor Monitor Blood Pressure Position Semi-Fowlers Semi-Fowlers Blood Pressure Location Left Arm Left Arm Baseline BP 117/86 Pulse Ox 98 95 Oxygen Delivery Method Nasal Cannula Nasal Cannula Oxygen Flow Rate (L/min) 4 4 Weight Weight: 125 lb 10.616 oz Body Mass Index (BMI) 25.3 Labs Labs Labs: Blood Type A NEGATIVE Antibody Screen NEGATIVE Hct 38.6 % (37-47) Hgb 13.4 g/dL (12.0-15.0) Assessment & Plan (1) Hypoxia: PLAN: - Appreciate assistance from medicine (2) Post-operative state: PLAN: - POD#0 s/p laparoscopic bilateral salpingectomy - Routine post op care - Tylenol, Ibuprofen, Oxycodone for pain control - SCD's for DVT prophylaxis (3) Tachycardia: PLAN: - Appreciate assistance from medicine
[2022-05-20 17:12] LABS: BNP,B-Type NATRIURETIC PEPTIDE 24.7 pg/mL (0-100)
[2022-05-20] MEDS: Furosemide 40 MG/4 ML Vial IV (17:17)
[2022-05-20] MEDS: 0.9% Saline Lock 10 ML Syringe IV (17:17)
[2022-05-20] MEDS: HYDROcodone Bitartrate/Apap 5/325 Tablet PO (18:00)
[2022-05-21 03:30] VITALS: BP 115/77; PULSE 77; RESP 18; TEMP 36.8; O2SAT 97
[2022-05-21 05:00] VITALS: PULSE 114
[2022-05-21 07:34] VITALS: BP 104/65; PULSE 109; RESP 14; TEMP 37.1; O2SAT 97
[2022-05-21] MEDS: HYDROcodone Bitartrate/Apap 5/325 Tablet PO ×2 (07:35→13:36)
[2022-05-21 07:40] VITALS: O2SAT 97
--- NOTE | 2022-05-21 07:43 | PCM.PN.OB ---
Subjective Subjective Pt states she is doing well this morning. RN at bedside and also report pt doing well. Pain controlled with [place] and Ibuprofen. Ambulating and voiding without difficulty. Gladis diet without N/V. No SOB. Objective Data Objective Data Vital Signs: Vital Signs Temp Pulse Resp BP Pulse Ox O2 Del Method O2 Flow Rate 98.8 F 109 H 14 104/65 97 Room Air 1 05/21/22 07:34 05/21/22 07:34 05/21/22 07:34 05/21/22 07:34 05/21/22 07:34 05/21/22 07:34 05/20/22 21:31 Oxygen Flow Rate (L/min) 1 Oxygen Delivery Method Room Air Weight: 125 lb 10.616 oz Body Mass Index (BMI) 25.3 Intake & Output: Intake and Output for Last 24 Hours 05/19/22 05/20/22 05/21/22 23:59 23:59 23:59 Intake Total 117 / 117 Balance 117 / 117 Lab / Micro Data Result Diagrams: 05/20/22 14:09 05/20/22 14:09 Labs: Laboratory Results - last 24 hr 05/20/22 07:15: Urine Test Negative 05/20/22 14:09: WBC 10.8, RBC 4.59, Hgb 13.4, Hct 38.6, MCV 84.1, MCH 29.2, MCHC 34.7, RDW Std Deviation 35.4, RDW Coeff of [place] 11.7, Plt Count 256, MPV 10.4, Immature Gran % (Auto) 0.500, Neut % (Auto) 91.8 H, Lymph % (Auto) 5.5 L, [place] % (Auto) 2.1, Eos % (Auto) 0.0, Baso % (Auto) 0.1, Absolute Neuts (auto) 9.9 H, Absolute Lymphs (auto) 0.59 L, Nucleated RBC % 0, Differential Comment SCANNED 05/20/22 14:09: Sodium 138, Potassium 3.6, Chloride 105, Carbon Dioxide 25.0, Anion Gap 8, BUN 14, Creatinine 0.69, Estim Creat Clear Calc 108.25, Est GFR (MDRD) Af Amer 129, Est GFR (MDRD) Non-Af 107, BUN/Creatinine Ratio 20.3 H, Glucose 110 H, Calcium 8.6, Total Bilirubin 0.40, AST 49 H, ALT 28, Alkaline Phosphatase 85, Total Protein 6.7, Albumin 3.4, Globulin 3.3, Albumin/Globulin Ratio 1.0 05/20/22 14:09: B-Natriuretic Peptide 24.7 Radiography Diagnostic Testing: Radiology Impression Chest X-Ray 05/20/22 12:11 IMPRESSION: Normal x-ray examination of the chest. Electronically Signed: Edward Nieves MD at 12:26 EDT , Chest CTA 05/20/22 14:28 IMPRESSION: No evidence of a pulmonary emboli. Bilateral focal areas of groundglass appearance involving both upper and lower lobes suggestive of possible fluid overload. Electronically Signed: Edward Nieves MD at 15:24 EDT , Physical Exam Const alert and no apparent distress General Appearance: comfortable GI soft to palpation and non-distended GI Narrative: Minimal tenderness on exam that is appropriate, no acute peritoneal signs Extremity normal to inspection Assessment & Plan (1) Tachycardia: PLAN: - Appreciate assistance from medicine. 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
[2022-05-21 07:44] VITALS: PULSE 121
[2022-05-21 13:01] VITALS: BP 110/77; PULSE 108; RESP 14; TEMP 36.3; O2SAT 97
== END 2022-05-21 12:20 | disposition home or self-care (01) ==
LOC: PCU 14:36 → SDC 14:37 → PCU 14:37
PROVIDERS: Student in an Organized Health Care Education/Training Program; Admitting Provider Obstetrics & Gynecology; Referring Provider Obstetrics & Gynecology; Visit Provider Internal Medicine
PROC: (CPT 58661; principal; 2022-05-20 08:30)
DX: Z30.2 Encounter for sterilization (principal); F33.2 Major depressive disorder, recurrent severe without psychotic features; G40.909 Epilepsy, unspecified, not intractable, without status epilepticus; Q51.810 Arcuate uterus; N83.201 Unspecified ovarian cyst, right side; F41.1 Generalized anxiety disorder; R09.02 Hypoxemia; Z79.899 Other long term (current) drug therapy
CPT/HCPCS: 58700; 00840; G0463; 36415; 71045; 71275; 80053; 81025; 83880; 85025; 85027; 86850; 86900; 86901; 87426; 88302; 93005; 94640; 96374; 99218; 99251; J7120; Q9967; A4216; G0378; J1940; J2405